=== PATIENT | female | born 1945 | race Caucasian/White ===

== ENCOUNTER 2017-09-19 17:04 | Outpatient (CLI) | payer MEDICARE, BC ==
--- NOTE | 2017-09-19 20:06 | ULT ---
LEFT LOWER EXTREMITY VENOUS DUPLEX EXAM: 09/19/17 HISTORY: Left leg edema. Real time color doppler evaluation of the left lower extremity was performed from groin to calf. This includes evaluation of the common femoral, superficial and profunda femoral, saphenous, popliteal an d trifurcation veins. This shows a patent deep venous system. Normal compressibility and augmentation . There is moderate edema change within the soft tissues of the calf. IMPRESSION: No evidence of DVT. POS: [facility]
== END 2017-09-19 17:05 | disposition home or self-care (01) ==
LOC: ULT 17:04
PROVIDERS: ATTEND Internal Medicine Geriatric Medicine
DX: M79.89 Other specified soft tissue disorders (principal); N18.6 End stage renal disease; R60.0 Localized edema; Z85.42 Personal history of malignant neoplasm of other parts of uterus

== ENCOUNTER 2017-12-05 13:54 | Outpatient (CLI) | payer MEDICARE, BC | END 2017-12-05 13:55 | disposition home or self-care (01) | LOC: BICCT 13:54 | PROVIDERS: ATTEND Internal Medicine Geriatric Medicine | DX: F03.90 Unspecified dementia, unspecified severity, without behavioral disturbance, psychotic disturbance, mood disturbance, and anxiety (principal); G45.9 Transient cerebral ischemic attack, unspecified | CPT/HCPCS: 70450 ==

== ENCOUNTER 2017-12-14 17:05 | Inpatient (IN) | payer MEDICARE, BC ==
[2017-12-14 18:18] LABS: #Lymphocytes 1.9 thou/uL (1.20-3.40); #Monocytes 0.5 thou/uL (0.11-0.59); #Neutrophils 7.3 thou/uL (1.40-6.50); %Basophils 0.4 % (0.0-1.0); %Eosinophils 0.3 % (0.0-10.0); %Monocytes 5.4 % (0.0-10.0); %Neutrophils 74.9 % (42.0-75.0); Hemoglobin 10.5 g/dL (12.0-16.0); Mean Corpuscular HGB CONC 32.3 g/dL (32.0-36.0); Mean Corpuscular Hemoglobin 32.3 pg (27.0-31.0); Mean Platelet Volume 6.5 fL (7.4-10.4); Platelet Count 227 thou/uL (130-400); Red Blood Cell (RBC) Count 3.26 mill/uL (4.20-5.40); White Blood Cell (WBC) Count 9.7 thou/uL (4.8-10.8)
[2017-12-14 18:33] LABS: Bilirubin Negative (Negative); Blood, Urine Large (Negative); Clarity TURBID (Clear); Glucose, Urine (Dipstick) Negative (Negative); Leukocyte Large (Negative); Nitrite Negative (Negative); Protein, Urine (Dipstick) 300 mg/dL (Neg-Trace); Specific Gravity, Urine 1.011 (1.002-1.036); Urobilinogen 0.2 mg/dL (0.2-1.0)
[2017-12-14 18:36] LABS: Bacteria/HPF 4+ HPF (None Seen); Hyaline Casts/LPF 7-10 HYALINE CAST LPF (0-3 Hyaline)
[2017-12-14 18:38] LABS: Pathc Cast-AUWi Flag 3.02 (0-2.49); Yeast-AUWi Flag 189.2 (0-25.0)
[2017-12-14 18:44] LABS: ALT (SGPT) 17 U/L (8-55); AST (SGOT) 20 U/L (5-34); Albumin 3.7 g/dL (3.4-4.8); Alkaline Phosphatase 80 U/L (40-150); Anion Gap 19 mmol/L (10-20); BUN (Urea Nitrogen) 30 mg/dL (9.8-20.1); Bilirubin, Total 0.5 mg/dL (0.2-1.2); Calc. Creatinine Clearance 0 mL/min (70-130); Calcium 9.7 mg/dL (7.8-10.44); Carbon Dioxide 23 mmol/L (23-31); Chloride 101 mmol/L (98-107); Estimated GFR-MDRD 9; Glucose 94 mg/dL (80-115); Potassium 5.3 mmol/L (3.5-5.1); Protein, Total 6.7 g/dL (6.0-8.3); Sodium 138 mmol/L (136-145)
[2017-12-14 18:45] LABS: Troponin I 0.045 ng/mL (< 0.028)
[2017-12-14 18:45] LABS: Manual Microscopic Reviewed? No Path Casts Seen; Yeast-All Forms None Seen HPF (None Seen)
[2017-12-14 19:01] LABS: Lactic Acid 1.2 mmol/L (0.5-2.2)
[2017-12-14] MEDS ORDERED: cefTRIAXone\\ROCEPHIN 2 GM VIAL ONE (20:10)
--- NOTE | 2017-12-14 20:16 | CT ---
NONCONTRAST HEAD CT: 12/14/17 HISTORY: Hypertension. Altered mental status. Intermittent confusion. TECHNIQUE: Noncontrast head CT is performed from skull base to skull vertex. No parenchymal hemorrhage. No extra-axial hematoma. No midline shift. Basilar cisterns are patent. Br ain volume, age appropriate. Cortical carrasquillo-white matter differentiation is preserved. Ventricles and sulci are patent and symmetric. Chronic small vessel ischemic changes of the white mat ter are identified. The calvarium is intact. Adequate aeration of the sinuses and mastoid air cells. IMPRESSION: Chronic small vessel ischemic change white matter. No acute intracranial process. Further evaluation with MRI if clinically warranted. POS: [facility]
--- NOTE | 2017-12-14 20:23 | RAD ---
ONE VIEW CHEST: 12/14/17 HISTORY: Altered mental status. Chills. Uncontrolled hypertension. COMPARISON: 09/19/17 FINDINGS: Portable upright chest: Stable left sided vascular stent. Heart size is normal. Pulmonary vessels are normal. Interstitial op acities are felt to represent chronic change with superimposed infiltrate. No significant pleural flu id. No pneumothorax. IMPRESSION: Infiltrate superimposed upon chronic change. Continued surveillance. POS: [facility]
[2017-12-14 21:46] LABS: Troponin I 0.041 ng/mL (< 0.028)
[2017-12-14 23:25] VITALS: BMI 20.9
[2017-12-14] MEDS ORDERED: Acetaminophen 325 MG TAB PO PRN (23:42)
[2017-12-14] MEDS ORDERED: Ondansetron HCl/PF 4 MG/2 ML Vial IVP PRN (23:42)
[2017-12-14] MEDS ORDERED: Ondansetron ODT 4 MG TAB SL PRN (23:42)
[2017-12-15] MEDS ORDERED: Opium Tincture 10% (1ml Charge) PO PRN (00:03)
[2017-12-15] MEDS ORDERED: Acetaminophen 500 MG TAB PO PRN (00:03)
[2017-12-15] MEDS ORDERED: Ondansetron HCl/PF 4 MG/2 ML Vial IVP PRN (00:03)
[2017-12-15] MEDS ORDERED: hydrALAZINE 20 MG/ML VIAL SLOW IVP PRN (00:03)
[2017-12-15] MEDS ORDERED: Metoclopramide HCl 10 MG/2 ML VIAL IVP PRN (00:22)
[2017-12-15] MEDS: Ondansetron ODT 4 MG TAB PO PRN ×2 (00:24→10:56)
[2017-12-15 00:59] LABS: Troponin I 0.053 ng/mL (< 0.028)
[2017-12-15] MEDS: cloNIDine 0.1 MG TAB PO PRN (04:23)
[2017-12-15] MEDS: HYDROcodone/Acetaminophen 10/325 mg Tablet PO PRN ×2 (04:47→13:11)
[2017-12-15 05:42] LABS: Anion Gap 19 mmol/L (10-20); BUN (Urea Nitrogen) 32 mg/dL (9.8-20.1); Calc. Creatinine Clearance 8 mL/min (70-130); Calcium 9.1 mg/dL (7.8-10.44); Carbon Dioxide 22 mmol/L (23-31); Chloride 104 mmol/L (98-107); Estimated GFR-MDRD 9; Glucose 90 mg/dL (80-115); Potassium 5.5 mmol/L (3.5-5.1); Sodium 139 mmol/L (136-145)
[2017-12-15] MEDS ORDERED: cefTRIAXone\\ROCEPHIN 1 GM, Syringe 0.4 ML in Sterile Water 9.6 ML SLOW IVP SCH (06:00)
[2017-12-15 06:49] LABS: Band 8 % (5-11); Hemoglobin 10.1 g/dL (12.0-16.0); Lymphocytes 10 % (21-51); MDiff Complete? YES; Mean Corpuscular HGB CONC 31.5 g/dL (32.0-36.0); Mean Corpuscular Hemoglobin 31.3 pg (27.0-31.0); Mean Corpuscular Volume 99.5 fl (81.0-99.0); Mean Platelet Volume 6.5 fL (7.4-10.4); Monocytes 2 % (0-10); Neutrophil 80 % (42-75); Platelet Count 236 thou/uL (130-400); RBC Distribution Width 12.2 % (11.5-14.5); Red Blood Cell (RBC) Count 3.23 mill/uL (4.20-5.40); White Blood Cell (WBC) Count 10.3 thou/uL (4.8-10.8)
--- NOTE | 2017-12-15 07:50 | HP ---
DATE OF ADMISSION: 12/15/2017 PRIMARY CARE PHYSICIAN: Mira Gilman MD PRIMARY REVERSE ENGINEER: Shen Elizondo MD CHIEF COMPLAINT: Elevated blood pressure and altered mental status. HISTORY OF PRESENT ILLNESS: This is a 72-year-old female, who presents to [facility] Emergency Department with approximately 2 to 3-day history of intermittent confusio n, altered mentation, lethargy, and elevated blood pressure. The patient states she has had some hea dache and dizziness over the last several days with elevated blood pressure readings at home. The pa win also noticed lower extremity edema over the last 2 weeks, which apparently is new for her. The patient admits to some abdominal discomfort, decreased appetite, but no specific documented fever, c hills, or exposure history. The patient does receive hemodialysis 3 times per week. The patient gilliam s state that she receives hemodialysis Monday, Monday, Monday and has been compliant with this reg imen. The patient denies any recent travel history, exposure, or family members with similar symptom s. The patient's history is complicated and significant for uterine and cervical cancer with bilater al urostomies as well as a colostomy. The patient has noticed increased output in the colostomy with liquidy brown stool. The patient denies any hematemesis, but has had some nausea and felt like vomi ting. The patient admits to significant history of recurrent urinary tract infections due to the uro stomy placements, on intermittent antibiotic therapy. The patient states she has not been on antibio tics in the last several weeks. In the emergency room, the patient underwent general evaluation incl uding CT of the brain showing no acute process. Portable chest x-ray showed questionable infiltrate on superimposed chronic changes. Metabolic screening showed evidence of a suspected urinary tract in fection, at which point, the patient received IV Rocephin and 1 liter of normal saline. The patient was referred to the telemetry unit for further evaluation. PAST MEDICAL HISTORY: 1. End-stage renal disease with hemodialysis on Monday, Monday, and Monday. 2. History of cervical and uterine cancer, status post pelvic reconstruction. 3. Hypertension. 4. History of right hand cellulitis, status post dog bite. 5. Depression. 6. Deconditioning. 7. Raynaud phenomenon. 8. Degenerative joint disease. 9. Peripheral vascular disease. 10. History of gout. PAST SURGICAL HISTORY: 1. Status post colostomy. 2. Status post ileostomy. 3. Status post pelvic exenteration. 4. Status post PICC line placement in the right upper extremity with subsequent removal. 5. Status post left arm AV fistula. 6. Status post temporary hemodialysis catheter placement. CURRENT MEDICATIONS: Based on previous electronic medical record shows, 1. [place] 10/325 mg, 1 tab p.o. q.4-6 hours p.r.n. pain. 2. Multivitamin 1 tab p.o. daily. 3. Tincture of opium 2 mL p.o. at bedtime p.r.n. 4. Prednisone 20 mg p.o. daily. 5. Renvela 800 mg p.o. t.i.d. 6. Effexor 75 mg 1 tab p.o. daily. 7. Vitamin B complex 150 mg p.o. daily. ALLERGIES: ERYTHROMYCIN, FENTANYL, MORPHINE, NALOXONE, PROMETHAZINE. FAMILY HISTORY: No inheritable diseases per patient report. SOCIAL HISTORY: Lives in the [place], [place] area. Assisted by her nephew with activities of daily ziyad ing. No current alcohol, tobacco, or illicit drug use. Ambulatory with the use of a rolling walker. REVIEW OF SYSTEMS: The following complete review of systems was negative, unless otherwise mentioned in the HPI or below: Constitutional: Weight loss or gain, ability to conduct usual activities. Skin: Rash, itching. Eyes: Double vision, pain. ENT/Mouth: Nose bleeding, neck stiffness, pain, tenderness. Cardiovascular: Palpitations, dyspnea on exertion, orthopnea. Respiratory: Shortness of breath, wheezing, cough, hemoptysis, fever or night sweats. Gastrointestinal: Poor appetite, abdominal pain, heartburn, nausea, vomiting, constipation, or diarr hea. Genitourinary: Urgency, frequency, dysuria, nocturia. Musculoskeletal: Pain, swelling. Neurologic/Psychiatric: Anxiety, depression. Allergy/Immunologic: Skin rash, bleeding tendency. Otherwise negative except as stated per HPI. PHYSICAL EXAMINATION: VITAL SIGNS: On admission, blood pressure 172/81, pulse 88, respiratory rate 18, temperature 97.8 de grees Fahrenheit, O2 saturation 95% on room air. GENERAL APPEARANCE: This is a 72-year-old female, ill-appearing, alert, responds to questi ons, in mild distress. HEENT: Pupils are equal, round, and reactive to light and accommodation. Extraocular muscles are in tact. No scleral icterus. No conjunctival injection. Nares, patent. OP is clear. Oral mucosa, dr y appearing. NECK: Supple. No cervical adenopathy, no thyromegaly, no carotid bruits, no JVD appreciated. Cervi shirley spine with full active and passive range of motion. No meningeal signs appreciated. CHEST: Diminished breath sounds in the bases bilaterally. CARDIOVASCULAR: S1, S2 without noted murmur, rub, or gallop. ABDOMEN: Round and soft with mild tenderness to palpation diffusely. Bilateral urostomy bags in martha ce. Positive colostomy in place. No palpable mass. No rebound. EXTREMITIES: Warm and dry with fair turgor. Pitting edema to the knees bilaterally. Pulses are pal pable distally at the dorsalis pedis, posterior tibial, and popliteal arteries bilaterally. Capillar y refill, less than 2 seconds. NEUROLOGIC: Cranial nerves II-XII are grossly intact. No focal or lateralizing signs appreciated. The patient is not observed ambulatory during this exam. PERTINENT LABORATORY AND X-RAY FINDINGS: Sodium 138, potassium 5.3, chloride 101, CO2 of 23, BUN 30, creatinine 4.73, estimated GFR of 9, glucose 94, lactic acid level 1.2, calcium 9.7. LFT is within normal limits. Troponin I ranged between 0.041 to 0.045. CBC showed a white blood cell count of 9.7 , hemoglobin 11, hematocrit 33, MCV 100, platelet count 227 with normal differential. Urinalysis [place] wed large leukocyte esterase, 11-20 rbc's per high-powered field, and 50 to too numerous to count wbc 's per high-powered field, 4+ bacteria. CT of the brain without contrast dated 12/14/2017 showed no acute intracranial process. Portable chest x-ray dated 12/14/2017 showed infiltrates superimposed on chronic changes. EKG dated 12/14/2017 by my interpretation shows sinus mechanism with heart rates i n the 70s. Attenuated R-waves in the precordial leads. Normal axis. Voltage criteria consistent wi th left ventricular hypertrophy. ASSESSMENT AND PLAN: 1. Urinary tract infection. Suspected recurrent. We will continue Rocephin 2 grams IV q.24 hours. Urine culture pending. The patient with recurrent urinary tract infections in the context of bilate ral urostomy tubes. 2. Acute metabolic encephalopathy. Secondarily to #1. See #1 above for management. Continue suppo rtive measures. 3. End-stage renal disease with hemodialysis. We will consult Nephrology Service for ongoing timing of maintenance hemodialysis. No urgent need for hemodialysis and likely will resume maintenance ses sions on 12/15/2017. 4. Elevated troponin I. Suspect secondarily to end-stage renal disease. No evidence to suggest acu te coronary syndrome. 5. Chronic macrocytic anemia secondary to chronic kidney disease. Continue serial hemoglobin assess ment. No evidence to suggest acute blood loss. Repeat CBC in the a.m. 6. Deconditioning. PT evaluation in the a.m. for functional assessment and fall risk determination. The patient may be deemed an appropriate candidate for ongoing home health with home PT. 7. Prophylaxis. Sequential compression devices while in bed. Pepcid 20 mg p.o. b.i.d. 8. Code status is FULL. Surrogate medical decision maker is patient's nephew.
[2017-12-15] MEDS: Sevelamer Carbonate 800 MG TAB PO SCH ×3 (12:47→17:51)
[2017-12-15] MEDS: Famotidine 20 MG TAB PO SCH (13:12)
--- NOTE | 2017-12-15 14:05 | PDOC.EVN ---
Event Note - Event Note Event Note: pt seen and examined in dialysis. Still appears drowsy but able to answer questions.denies any SOB,CP etc chart reviewed. cont IV ABx untill final Cx reported . may need ID consult given complicated history with urostomy tubes b/l Care discussed with family.Pt needs changing of Nephrostomy tubes .last done 4 weeks ago. follow wit . will consult him per family request cont supportive care. will follow. am labs HD per nephrology
--- NOTE | 2017-12-15 19:23 | CON ---
DATE OF CONSULTATION: 12/15/2017 DATE OF HOSPITAL ADMISSION: 12/14/2017 REASON FOR CONSULTATION: 1. History of bladder cancer, status post cystectomy with ileal conduit. 2. 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 3. Bilateral indwelling nephroureteral stents with repeated occlusion approximately on a 2-month ibrahima edule. HISTORY OF PRESENT ILLNESS: Ms. 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 The patient was brought in through the emergency depar tment on 12/14/2017. She is hemodialysis dependent for renal function, but does have a degree of sissy er clearance through her bilateral kidneys. Unfortunately, she has strictures of her ureters and an ileal conduit after treatment of her bladder cancer by cystectomy with ileal conduit. As a result, t he patient has chronic re-obstruction of her bilateral nephroureteral stents. The patient also has a colostomy secondary to radiation injury. Ms. Whitaker is not in her usual state and is barely abl e to carry on a conversation at this point. REVIEW OF SYSTEMS: Constitutional: The patient has had some altered mental status. Head, Ears, Nose , and Throat: No obvious problems. Eyes: Negative. Respiratory: Clear to auscultation bilaterall y. She does have a history of secondhand smoke exposure from her mother, but does not manifest any s ignificant smoking-related disease at the present time. Cardiovascular: Negative. Gastrointestinal : The patient has a colostomy and has had radiation associated injury to her colon. Endocrine: Neg ative. Genitourinary: The patient has bilateral percutaneous nephrostomy tubes and a right lower qu adrant ileal conduit, as well as a history of bladder cancer. She has a history of cervical cancer a nd has undergone treatment for that in the past, which included radiation. Musculoskeletal: Negativ e. Allergies: Negative. Neurologic: Negative. Hematologic: Negative. Psychiatric and Behaviora l: Negative. PAST MEDICAL HISTORY: 1. Endometrial carcinoma C54.1. 2. End-stage renal disease on dialysis, N18.8, Z99.2. 3. History of nephrostomies, Z87.448. 4. Arthritis. 5. Cervical cancer. 6. Chronic fatigue. 7. Chronic kidney disease. 8. Lumbago with sciatica. 9. Osteoporosis. 10. B12 deficiency. 11. Vitamin D deficiency. PAST SURGICAL HISTORY: 1. Hysterectomy. 2. Colostomy. 3. Bilateral nephrostomy tubes for urethral stricture disease. 4. History of bladder cancer, status post cystectomy with ileal conduit. SOCIAL HISTORY: The patient is a lifelong nonsmoker, though had secondhand smoke exposure from her m other. She is not engaged in sexual activity at present and does not use illicit drugs. She does dr ink occasional alcohol. FAMILY MEDICAL HISTORY: Not available. PHYSICAL EXAMINATION: VITAL SIGNS: Temperature is 97.8, pulse 78, respirations 12, O2 saturation is 96% on 1 liter by nasa l cannula, blood pressure is 162/74. GENERAL: This is a cachectic white female. She does respond to questions appropriately, but appears extremely tired. HEENT: Head is normocephalic and atraumatic. No bruises noted. NECK: Supple. CHEST: Lungs, clear to auscultation bilaterally. CARDIAC: The patient has a regular rate and rhythm of approximately 73-78. On monitor, she has a no rmal sinus rhythm today. ABDOMEN: Soft and nontender. There is stool present in the patient's colostomy. The patient has an ileal conduit on the right. There is bilateral back nephroureteral stents in place. PELVIC: Deferred at this time. EXTREMITIES: The patient has a left arm fistula, which has been accessed today for hemodialysis. NEUROLOGIC: The patient does recognize me, but appears extremely tired. She has grossly normal refl exes. EXTREMITIES: There is right greater than left lower extremity edema. LABORATORY STUDIES: The patient has a white count of 10,300. The hemoglobin is 10 with a hematocrit of 32.1. She has a moderate left shift with 80% neutrophils on the manual count. There is an ANC o f 7.3, which is elevated. Serum chemistries this morning prior to dialysis showed a potassium of 5.5 , blood urea nitrogen of 32, and creatinine of 4.92. Microbiology evaluation: There are gram-negative rods isolated from her urine from her nephrostomy t ube. This would not be an unexpected finding in that they drain into an ileal conduit. ASSESSMENT AND PLAN: This patient appears to have some type of problem causing altered mental status . It is possible that this relates to her nephrostomy tubes becoming re-occluded. She is not certai n when her nephroureteral stents were last changed. 1. Frequent reocclusion of bilateral nephroureteral stents secondary to biofilm development due to i howell conduit contact. The patient probably should stick to a 2-month schedule for replacement of her nephroureteral stents as she has not been able to tolerate them being left in place for longer than that without exchange by her report. 2. Generalized illness, uncertain whether this patient is sick due to a generalized sepsis, but she does have an elevated ANC and a left shift present. The patient is not febrile, but is a relatively thin, frail, elderly female. Nephroureteral stent exchange. I have placed a call to Interventional Radiology to arrange for nephr oureteral stent exchange.
[2017-12-15] MEDS: cefTRIAXone\\ROCEPHIN 2 GM in Sodium Chloride 0.9% 100 ML IVPB SCH (22:00)
[2017-12-16] MEDS: HYDROcodone/Acetaminophen 10/325 mg Tablet PO PRN ×2 (03:55→20:37)
[2017-12-16] MEDS: Famotidine 20 MG TAB PO SCH (10:00)
[2017-12-16] MEDS: Furosemide 80 MG TAB PO SCH (10:00)
[2017-12-16] MEDS: Sevelamer Carbonate 800 MG TAB PO SCH ×3 (10:00→18:50)
--- NOTE | 2017-12-16 11:05 | PDOC.PN ---
- Subjective Encounter Start Date: 12/16/17 Encounter Start Time: 07:50 -: old records requested/rev Patient seen and examined. No new complaints. No overnight events - Objective Resuscitation Status: Resuscitation Status FULL:Full Resuscitation MAR Reviewed: Yes Vital Signs & Weight: Vital Signs (12 hours) Temp Pulse Resp BP Pulse Ox 12/16/17 07:25 98.2 F 82 16 100 12/16/17 07:20 98.2 F 82 16 157/75 H 100 12/16/17 04:00 98.0 F 85 18 99 12/16/17 00:12 97.5 F L 76 16 147/68 H 99 Weight Weight 107 lb 8 oz I&O: 12/15/17 12/16/17 12/17/17 06:59 06:59 06:59 Intake Total 490 Output Total 4035 Balance -3545 Result Diagrams: 12/15/17 04:06 12/15/17 04:06 EKG Reviewed by me: Yes (nsr) Phys Exam - Physical Examination Constitutional: NAD HEENT: PERRLA, moist MMs, sclera anicteric Neck: no JVD, supple Respiratory: no wheezing, no rales, no rhonchi Cardiovascular: RRR, no significant murmur, no rub Gastrointestinal: soft, no distention, positive bowel sounds colostomy, ileal conduit Musculoskeletal: no edema, pulses present Neurological: non-focal, normal sensation Lymphatic: no nodes Psychiatric: normal affect, A&O x 3 Skin: no rash, normal turgor Dx/Plan (1) Elevated troponin Code(s): R74.8 - ABNORMAL LEVELS OF OTHER SERUM ENZYMES Status: Acute (2) Encephalopathy acute Code(s): G93.40 - ENCEPHALOPATHY, UNSPECIFIED Status: Acute (3) H/O carcinoma of bladder Code(s): Z85.51 - PERSONAL HISTORY OF MALIGNANT NEOPLASM OF BLADDER Status: Acute (4) Obstruction of urostomy catheter Code(s): T83.098A - [facility] COMPL OF OTHER URINARY CATHETER, INITIAL ENCOUNTER Status: Acute (5) ESRD on dialysis Code(s): N18.6 - END STAGE RENAL DISEASE; Z99.2 - DEPENDENCE ON RENAL DIALYSIS Status: Chronic (6) H/O malignant neoplasm of uterine body Code(s): Z85.42 - PERSONAL HISTORY OF MALIGNANT NEOPLASM OF OTH PRT UTERUS Status: Chronic (7) Macrocytic anemia Code(s): D53.9 - NUTRITIONAL ANEMIA, UNSPECIFIED Status: Chronic (8) Physical deconditioning Code(s): R53.81 - OTHER MALAISE Status: Chronic (9) Secondary hyperparathyroidism of renal origin Code(s): N25.81 - SECONDARY HYPERPARATHYROIDISM OF RENAL ORIGIN Status: Chronic - Plan cont current plan of care, plan discussed w/ family, continue antibiotics * medication reviewed as below * symptomatic treatment * I spoke with urology about the plan * Pt needs nephroureteral stent exchange but pt prefers to be done here but it is not possible * so will try to transfer to [place] * continue rocephin. Review of Systems - Review of Systems Eyes: negative: Pain, Vision Change, Conjunctivae Inflammation, Eyelid Inflammation, Redness, Other ENT: negative: Ear Pain, Ear Discharge, Nose Pain, Nose Discharge, Nose Congestion, Mouth Pain, Mouth Swelling, Throat Pain, Throat Swelling, Other Respiratory: negative: Cough, Dry, Shortness of Breath, Hemoptysis, SOB with Excertion, Pleuritic Pain, Sputum, Wheezing Cardiovascular: negative: chest pain, palpitations, orthopnea, paroxysmal nocturnal dyspnea, edema, light headedness, other Gastrointestinal: negative: Nausea, Vomiting, Abdominal Pain, Diarrhea, Constipation, Melena, Hematochezia, Other Genitourinary: negative: Dysuria, Frequency, Incontinence, Hematuria, Retention , Other Musculoskeletal: negative: Neck Pain, Shoulder Pain, Arm Pain, Back Pain, Hand Pain, Leg Pain, Foot Pain, Other Skin: negative: Rash, Lesions, Benjamin, Bruising, Other - Medications/Allergies Allergies/Adverse Reactions: Allergies Allergy/AdvReac Type Severity Reaction Status Date / Time erythromycin base Allergy Verified 12/15/17 00:02 fentanyl Allergy Verified 12/15/17 00:02 morphine Allergy Verified 12/15/17 00:02 naloxone [From Narcan] Allergy Verified 12/15/17 00:02 promethazine [From Phenergan] Allergy Verified 12/15/17 00:02 Medications: Current Medications Acetaminophen (Tylenol) 1,000 mg PO Q6H PRN PRN Reason: Headache/Fever or Mild Pain Hydrocodone Bitart/Acetaminophen ([place] 10/325) 1 tab PO Q6H PRN PRN Reason: Pain 4-6 Hydrocodone Bitart/Acetaminophen ([place] 10/325) 2 tab PO Q6H PRN PRN Reason: Pain 7-10 Last Admin: 12/16/17 03:55 Dose: 2 tab Clonidine (Catapres) 0.1 mg PO Q4H PRN PRN Reason: Systolic BP > 180 Last Admin: 12/15/17 04:23 Dose: 0.1 mg Famotidine (Pepcid) 20 mg PO DAILY [facility] Last Admin: 12/16/17 10:00 Dose: 20 mg Furosemide (Lasix) 80 mg PO DAILY [facility] Last Admin: 12/16/17 10:00 Dose: 80 mg Hydralazine HCl (Apresoline) 10 mg SLOW IVP Q4H PRN PRN Reason: Systolic BP > 180 Ceftriaxone Sodium 2 gm/ (Sodium Chloride) 100 mls @ 200 mls/hr IVPB 1999 [facility] Last Admin: 12/15/17 22:00 Dose: 100 mls Metoclopramide HCl (Reglan) 10 mg IVP Q6H PRN PRN Reason: Nausea/Vomiting Ondansetron HCl (Zofran Odt) 4 mg PO Q6H PRN PRN Reason: Nausea/Vomiting Last Admin: 12/15/17 10:56 Dose: 4 mg Ondansetron HCl (Zofran) 4 mg IVP Q6H PRN PRN Reason: Nausea/Vomiting Opium Tincture (Opium Tincture 10%) 2 ml PO HSPRN PRN PRN Reason: slow down stools Sevelamer Carbonate (Renvela) 800 mg PO TID-[facility] Last Admin: 12/16/17 10:00 Dose: 800 mg Sodium Chloride (Flush - Normal Saline) 10 ml IVF Q12HR [facility] Last Admin: 12/16/17 10:02 Dose: 10 ml Sodium Chloride (Flush - Normal Saline) 10 ml IVF PRN PRN PRN Reason: Saline Flush Venlafaxine HCl (Effexor) 75 mg PO DAILY [facility] Last Admin: 12/16/17 10:00 Dose: 75 mg
[2017-12-16] MEDS ORDERED: Eucerin (Mineral Oil/Petrolatum,White) 30 gm Jar TOP PRN (11:06)
[2017-12-16] MEDS ORDERED: Artificial Tears 18 DROP/0.9 ML EA EYE PRN (11:06)
[2017-12-16] MEDS ORDERED: Milk Of Magnesia 30 ML UDCUP PO PRN (11:06)
[2017-12-16] MEDS ORDERED: Senokot 8.6 MG TAB PO PRN (11:06)
[2017-12-16] MEDS ORDERED: Chloraseptic Spray 180 ml Bottle PO PRN (11:06)
[2017-12-16] MEDS ORDERED: Loratadine 10 MG TAB PO PRN (11:06)
[2017-12-16] MEDS ORDERED: Acetaminophen 325 MG TAB PO PRN (11:06)
[2017-12-16] MEDS ORDERED: Temazepam 15 MG CAP PO PRN (11:06)
[2017-12-16] MEDS ORDERED: Diabetic Tussin 200 MG/10 ML UDCUP PO PRN (11:06)
[2017-12-16] MEDS ORDERED: Sodium Chloride 0.65% Nasal 44 ML BOT EA NARE PRN (11:06)
[2017-12-16] MEDS ORDERED: Loperamide HCl 2 MG CAP PO PRN (11:06)
--- NOTE | 2017-12-16 12:28 | DIS ---
PRIMARY CARE PHYSICIAN: Mira Gilman M.D. DATE OF ADMISSION: 12/14/2017 DATE OF DISCHARGE: 12/16/2017 DISCHARGE DISPOSITION: Other hospital for higher level of care. PRIMARY DISCHARGE DIAGNOSES: 1. 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 2. Complicated urinary tract infection. SECONDARY DISCHARGE DIAGNOSES: End stage renal disease on hemodialysis, secondary hyperparathyroidis m of renal origin, chronic physical deconditioning, macrocytic anemia, history of malignant neoplasm of uterine and cervix, history of bladder carcinoma required cystectomy and ilial conduit, end-stage renal disease on hemodialysis, colostomy in place, protein-calorie malnutrition, mild. PRIMARY PROCEDURE/OPERATION: None. RADIOLOGICAL INVESTIGATION: CT brain on admission showed no acute intracranial process, chronic isch emic white matter changes. Chest x-ray showed no acute cardiopulmonary process. SIGNIFICANT LABORATORY DATA: WBC 10.3, hemoglobin 10.1, platelet 236 with a band. Sodium 139, potas sium 5.5, BUN 32, creatinine 4.92, calcium 9.1, troponin 0.053. Liver enzymes normal. Lactic acid 1 .2. Urinalysis suggestive of UTI. Urine culture grew Citrobacter and gram negative camilo. Blood cult ure negative. DISCHARGE MEDICATIONS: While in hospital, the patient is receiving Rocephin 1 gram IV daily. The delfino walden is on following medication at home, Lasix 80 mg p.o. daily, [place] 10 one tablet q.6 hourly p.r. n., tincture of opium 1 mL q.6 h. p.r.n., ropinirole 0.25 mg p.o. at bedtime, Renvela 2400 mg p.o. t. i.d., Effexor 225 mg p.o. daily, vitamin B12 IM as directed. Based on culture and sensitivity result , the patient should be able to take orally Augmentin or Omnicef for her recurrent urinary tract infe ction. CONTRAINDICATIONS: None. CODE STATUS: FULL CODE. INPATIENT CONSULTANTS: Dr. Fernandez, urologist, was consulted while in hospital. TEST RESULTS PENDING ON DISCHARGE: None. ALLERGIES: ERYTHROMYCIN, FENTANYL, MORPHINE, NALOXONE, PROMETHAZINE. DISCHARGE PLAN: Post hospital, the patient is planned to discharge to a higher level of care at [facility]. HOSPITAL COURSE: A 72-year-old female who has bladder cancer and she had cystectomy and subsequently ileal conduit done. She also has a history of uterine and cervical malignancy, required radiation t herapy and because of that, the patient has ureteral stricture. The patient does have nephroureteral stent placed and that is occluded and that was making her seek. She presented at this time to [facility] with altered mental status. CT brain was negative for any acute intracranial process. We suspec americo urinary tract infection. The patient does have an ileal conduit as well as colostomy and nephrou reteral stent placement and that is why considering complicated UTI. The patient was admitted in [facility] The patient was treated with antibiotic therapy on discharge. Based on culture and sensitivi ty result, the patient was receiving Rocephin while in hospital. Augmentin and Omnicef can be consid ered orally upon discharge. This patient wants to do nephroureteral stent exchange here in our hospital, but unfortunately our [facility] does not have any supply necessary for that as well as our etiologies cannot do at this point during this admission. The patient used to do this procedure at [facility], but Dr. Fernandez pr efer her to go to [facility], so medical record can be accessible and future stent exchan ge can be done here locally which patient prefers ideally. Overall, this patient is otherwise medically stable for discharge. We are working with transfer cent er for transferring to either [facility] preferably, if not, then [facility]. Hawkins bsequently, the patient will follow up with Urology as an outpatient basis. The patient is seen and examined at bedside today. Plan of care discussed with the family member and patient. Please see my progress note from today for further detail.
[2017-12-16] MEDS: cefTRIAXone\\ROCEPHIN 2 GM in Sodium Chloride 0.9% 100 ML IVPB SCH (20:36)
[2017-12-17] MEDS: HYDROcodone/Acetaminophen 10/325 mg Tablet PO PRN ×2 (02:25→13:04)
--- NOTE | 2017-12-17 05:46 | PDOC.PN ---
- Subjective Encounter Start Date: 12/17/17 Encounter Start Time: 09:00 Patient seen and examined. No new complaints. No overnight events pt c/o chest pain - Objective Resuscitation Status: Resuscitation Status FULL:Full Resuscitation MAR Reviewed: Yes Vital Signs & Weight: Vital Signs (12 hours) Temp Pulse Resp BP BP Pulse Ox 12/17/17 04:00 98.2 F 74 18 92 L 12/17/17 00:45 168/82 H 94 L 12/17/17 00:00 97.8 F 77 18 180/79 H 91 L 12/16/17 20:00 98.5 F 83 16 94 L 12/16/17 19:51 98.5 F 83 16 169/83 H 92 L Weight Weight 107 lb 8 oz I&O: 12/15/17 12/16/17 12/17/17 06:59 06:59 06:59 Intake Total 490 760 Output Total 4035 325 Balance -3545 435 Result Diagrams: 12/17/17 06:56 12/17/17 06:56 EKG Reviewed by me: Yes ([id number]) Phys Exam - Physical Examination Constitutional: NAD HEENT: PERRLA, moist MMs, sclera anicteric Neck: no JVD, supple Respiratory: no wheezing, no rales, no rhonchi Cardiovascular: RRR, no significant murmur, no rub Gastrointestinal: soft, no distention, positive bowel sounds colostomy+, nephrostomy +, ileal conduit Musculoskeletal: no edema, pulses present Neurological: non-focal Lymphatic: no nodes Psychiatric: normal affect Skin: no rash, normal turgor Dx/Plan (1) Encephalopathy acute Code(s): G93.40 - ENCEPHALOPATHY, UNSPECIFIED Status: Acute (2) Obstruction of urostomy catheter Code(s): T83.098A - [facility] COMPL OF OTHER URINARY CATHETER, INITIAL ENCOUNTER Status: Acute (3) Elevated troponin Code(s): R74.8 - ABNORMAL LEVELS OF OTHER SERUM ENZYMES Status: Acute (4) H/O carcinoma of bladder Code(s): Z85.51 - PERSONAL HISTORY OF MALIGNANT NEOPLASM OF BLADDER Status: Acute (5) ESRD on dialysis Code(s): N18.6 - END STAGE RENAL DISEASE; Z99.2 - DEPENDENCE ON RENAL DIALYSIS Status: Chronic (6) H/O malignant neoplasm of uterine body Code(s): Z85.42 - PERSONAL HISTORY OF MALIGNANT NEOPLASM OF OTH PRT UTERUS Status: Chronic (7) Macrocytic anemia Code(s): D53.9 - NUTRITIONAL ANEMIA, UNSPECIFIED Status: Chronic (8) Physical deconditioning Code(s): R53.81 - OTHER MALAISE Status: Chronic (9) Secondary hyperparathyroidism of renal origin Code(s): N25.81 - SECONDARY HYPERPARATHYROIDISM OF RENAL ORIGIN Status: Chronic - Plan cont current plan of care, continue antibiotics * s/p procedure and stent exchange * continue rocephin * serial cardiac enzyme * ekg is nsr * medication reviewed as below * symptomatic treatment * expecting discharge soon when urology ok. Review of Systems - Review of Systems Constitutional: negative: fever, chills, sweats, weakness, malaise, other Eyes: negative: Pain, Vision Change, Conjunctivae Inflammation, Eyelid Inflammation, Redness, Other ENT: negative: Ear Pain, Ear Discharge, Nose Pain, Nose Discharge, Nose Congestion, Mouth Pain, Mouth Swelling, Throat Pain, Throat Swelling, Other Respiratory: negative: Cough, Dry, Shortness of Breath, Hemoptysis, SOB with Excertion, Pleuritic Pain, Sputum, Wheezing Cardiovascular: chest pain. negative: palpitations, orthopnea, paroxysmal nocturnal dyspnea, edema, light headedness, other Gastrointestinal: negative: Nausea, Vomiting, Abdominal Pain, Diarrhea, Constipation, Melena, Hematochezia, Other Genitourinary: negative: Dysuria, Frequency, Incontinence, Hematuria, Retention , Other Musculoskeletal: Back Pain. negative: Neck Pain, Shoulder Pain, Arm Pain, Hand Pain, Leg Pain, Foot Pain, Other Skin: negative: Rash, Lesions, Benjamin, Bruising, Other - Medications/Allergies Allergies/Adverse Reactions: Allergies Allergy/AdvReac Type Severity Reaction Status Date / Time erythromycin base Allergy Verified 12/15/17 00:02 fentanyl Allergy Verified 12/15/17 00:02 morphine Allergy Verified 12/15/17 00:02 naloxone [From Narcan] Allergy Verified 12/15/17 00:02 promethazine [From Phenergan] Allergy Verified 12/15/17 00:02 Medications: Current Medications Acetaminophen (Tylenol) 650 mg PO Q4H PRN PRN Reason: Headache/Fever or Mild Pain Hydrocodone Bitart/Acetaminophen ([place] 10/325) 1 tab PO Q6H PRN PRN Reason: Pain 4-6 Last Admin: 12/17/17 02:25 Dose: 1 tab Hydrocodone Bitart/Acetaminophen ([place] 10/325) 2 tab PO Q6H PRN PRN Reason: Pain 7-10 Last Admin: 12/16/17 03:55 Dose: 2 tab Al Hydroxide/Mg Hydroxide (Maalox) 15 ml PO Q4H PRN PRN Reason: Heartburn or Indigestion Artificial Tears (Tears Naturale) 0 drop EA EYE PRN PRN PRN Reason: Dry Eyes Clonidine (Catapres) 0.1 mg PO Q4H PRN PRN Reason: Systolic BP > 180 Last Admin: 12/15/17 04:23 Dose: 0.1 mg Famotidine (Pepcid) 20 mg PO DAILY [facility] Last Admin: 12/16/17 10:00 Dose: 20 mg Furosemide (Lasix) 80 mg PO DAILY [facility] Last Admin: 12/16/17 10:00 Dose: 80 mg Guaifenesin (Robitussin Sf) 200 mg PO Q4H PRN PRN Reason: Cough Hydralazine HCl (Apresoline) 10 mg SLOW IVP Q4H PRN PRN Reason: Systolic BP > 180 Ceftriaxone Sodium 2 gm/ (Sodium Chloride) 100 mls @ 200 mls/hr IVPB 1999 [facility] Last Admin: 12/16/17 20:36 Dose: 100 mls Loperamide HCl (Imodium) 2 mg PO PRN PRN PRN Reason: Diarrhea/Loose Stools Loratadine (Claritin) 10 mg PO DAILYPRN PRN PRN Reason: Sinus Symptoms Magnesium Hydroxide (Milk Of Magnesium) 30 ml PO DAILYPRN PRN PRN Reason: Constipation Metoclopramide HCl (Reglan) 10 mg IVP Q6H PRN PRN Reason: Nausea/Vomiting Mineral Oil/White Petrolatum (Eucerin Cream) 0 gm TOP BIDPRN PRN PRN Reason: Dry Skin Ondansetron HCl (Zofran Odt) 4 mg PO Q6H PRN PRN Reason: Nausea/Vomiting Last Admin: 12/15/17 10:56 Dose: 4 mg Ondansetron HCl (Zofran) 4 mg IVP Q6H PRN PRN Reason: Nausea/Vomiting Opium Tincture (Opium Tincture 10%) 2 ml PO HSPRN PRN PRN Reason: slow down stools Phenol (Chloraseptic [place] 180 Ml Bot) 0 ml PO PRN PRN PRN Reason: Sore Throat Ropinirole HCl (Requip) 0.25 mg PO HS [facility] Senna (Senokot) 2 tab PO HSPRN PRN PRN Reason: Constipation Sevelamer Carbonate (Renvela) 800 mg PO TID-WM [facility] Last Admin: 12/16/17 18:50 Dose: Not Given Sodium Chloride (Flush - Normal Saline) 10 ml IVF Q12HR [facility] Last Admin: 12/16/17 20:37 Dose: 10 ml Sodium Chloride (Flush - Normal Saline) 10 ml IVF PRN PRN PRN Reason: Saline Flush Sodium Chloride ([place] Nasal [place] 0.65%) 0 ml EA NARE QIDPRN PRN PRN Reason: Nasal Congestion Temazepam (Restoril) 15 mg PO HSPRN PRN PRN Reason: Insomnia Venlafaxine HCl (Effexor) 75 mg PO DAILY [facility] Last Admin: 12/16/17 10:00 Dose: 75 mg
[2017-12-17 07:16] LABS: #Lymphocytes 1.2 thou/uL (1.20-3.40); #Monocytes 0.5 thou/uL (0.11-0.59); %Basophils 0.3 % (0.0-1.0); %Eosinophils 0.3 % (0.0-10.0); %Lymphocytes 10.5 % (21.0-51.0); %Monocytes 4.3 % (0.0-10.0); %Neutrophils 84.6 % (42.0-75.0); Hemoglobin 11.2 g/dL (12.0-16.0); Mean Corpuscular HGB CONC 31.9 g/dL (32.0-36.0); Mean Platelet Volume 7.2 fL (7.4-10.4); Platelet Count 234 thou/uL (130-400); RBC Distribution Width 12.2 % (11.5-14.5); Red Blood Cell (RBC) Count 3.51 mill/uL (4.20-5.40); White Blood Cell (WBC) Count 11.8 thou/uL (4.8-10.8)
[2017-12-17 07:20] LABS: Albumin 3.4 g/dL (3.4-4.8); Anion Gap 21 mmol/L (10-20); BUN (Urea Nitrogen) 36 mg/dL (9.8-20.1); BUN/Creatinine Ratio 7.42; Calc. Creatinine Clearance 8 mL/min (70-130); Calcium 9.2 mg/dL (7.8-10.44); Carbon Dioxide 19 mmol/L (23-31); Chloride 100 mmol/L (98-107); Estimated GFR-MDRD 9; Glucose 97 mg/dL (80-115); Sodium 135 mmol/L (136-145)
[2017-12-17] MEDS: Sevelamer Carbonate 800 MG TAB PO SCH ×3 (09:47→18:28)
[2017-12-17] MEDS: Furosemide 80 MG TAB PO SCH (09:48)
[2017-12-17] MEDS: Famotidine 20 MG TAB PO SCH (09:48)
[2017-12-17] MEDS ORDERED: Nitroglycerin 0.4 MG TAB (25 Tab Bottle) ONE (12:57)
[2017-12-17] MEDS: cloNIDine 0.1 MG TAB PO PRN (13:04)
[2017-12-17] MEDS ORDERED: Mag-Al 1200 mg/1200 mg/30 ML UDCUP PO SCH (13:30)
[2017-12-17 14:05] LABS: CKMB 3.4 ng/mL (0-6.6)
[2017-12-17 19:51] LABS: CKMB 3.1 ng/mL (0-6.6); Troponin I 0.044 ng/mL (< 0.028)
[2017-12-17] MEDS: rOPINIRole HCl 0.25 MG TAB PO SCH (20:51)
[2017-12-17] MEDS: cefTRIAXone\\ROCEPHIN 2 GM in Sodium Chloride 0.9% 100 ML IVPB SCH (20:51)
[2017-12-18 02:11] LABS: CKMB 3.1 ng/mL (0-6.6); Troponin I 0.039 ng/mL (< 0.028)
[2017-12-18] MEDS: HYDROcodone/Acetaminophen 10/325 mg Tablet PO PRN ×3 (04:06→20:34)
[2017-12-18 08:44] LABS: #Lymphocytes 0.8 thou/uL (1.20-3.40); #Monocytes 0.4 thou/uL (0.11-0.59); #Neutrophils 9.7 thou/uL (1.40-6.50); %Basophils 0.1 % (0.0-1.0); %Eosinophils 0.2 % (0.0-10.0); %Lymphocytes 7.4 % (21.0-51.0); %Neutrophils 88.3 % (42.0-75.0); Hemoglobin 10.2 g/dL (12.0-16.0); Mean Corpuscular Hemoglobin 31.9 pg (27.0-31.0); Mean Corpuscular Volume 99.8 fl (81.0-99.0); Mean Platelet Volume 7.2 fL (7.4-10.4); Platelet Count 172 thou/uL (130-400); RBC Distribution Width 11.9 % (11.5-14.5); Red Blood Cell (RBC) Count 3.19 mill/uL (4.20-5.40); White Blood Cell (WBC) Count 10.9 thou/uL (4.8-10.8)
[2017-12-18] MEDS: Sevelamer Carbonate 800 MG TAB PO SCH ×3 (08:49→16:38)
[2017-12-18 09:07] LABS: Anion Gap 14 mmol/L (10-20); BUN (Urea Nitrogen) 38 mg/dL (9.8-20.1); Calc. Creatinine Clearance 8 mL/min (70-130); Calcium 8.8 mg/dL (7.8-10.44); Carbon Dioxide 26 mmol/L (23-31); Chloride 101 mmol/L (98-107); Estimated GFR-MDRD 8; Glucose 94 mg/dL (80-115); Potassium 4.3 mmol/L (3.5-5.1); Sodium 137 mmol/L (136-145)
[2017-12-18 09:24] LABS: HBSAg Index 0.19 S/CO (0-0.99); Hep B Surf Ag Non-Reactive S/CO (NonReactive)
--- NOTE | 2017-12-18 10:00 | PDOC.PN ---
- Subjective Encounter Start Date: 12/18/17 Encounter Start Time: 08:50 pt seen in dialysis room, she is very weak, no fever - Objective Resuscitation Status: Resuscitation Status FULL:Full Resuscitation MAR Reviewed: Yes Vital Signs & Weight: Vital Signs (12 hours) Temp Pulse Resp BP Pulse Ox 12/18/17 07:24 97.9 F 61 18 127/74 94 L 12/18/17 07:16 98 F 75 18 187/79 H 93 L Weight Weight 107 lb 8 oz I&O: 12/17/17 12/18/17 12/19/17 06:59 06:59 06:59 Intake Total 760 830 Output Total 325 1100 Balance 435 -270 Result Diagrams: 12/18/17 07:40 12/18/17 07:40 Phys Exam - Physical Examination Constitutional: NAD HEENT: PERRLA, moist MMs, sclera anicteric Neck: no JVD, supple Respiratory: no wheezing, no rales, no rhonchi Cardiovascular: RRR, no significant murmur, no rub Gastrointestinal: soft colostomy+, ilieal conduit+, nephrostomy tube+ Musculoskeletal: no edema, pulses present Neurological: non-focal Lymphatic: no nodes Psychiatric: normal affect Skin: no rash, normal turgor Dx/Plan (1) Encephalopathy acute Code(s): G93.40 - ENCEPHALOPATHY, UNSPECIFIED Status: Acute (2) Obstruction of urostomy catheter Code(s): T83.098A - [facility] COMPL OF OTHER URINARY CATHETER, INITIAL ENCOUNTER Status: Acute Comment: s/p stent exchange (3) Elevated troponin Code(s): R74.8 - ABNORMAL LEVELS OF OTHER SERUM ENZYMES Status: Acute (4) H/O carcinoma of bladder Code(s): Z85.51 - PERSONAL HISTORY OF MALIGNANT NEOPLASM OF BLADDER Status: Acute (5) ESRD on dialysis Code(s): N18.6 - END STAGE RENAL DISEASE; Z99.2 - DEPENDENCE ON RENAL DIALYSIS Status: Chronic (6) H/O malignant neoplasm of uterine body Code(s): Z85.42 - PERSONAL HISTORY OF MALIGNANT NEOPLASM OF OTH PRT UTERUS Status: Chronic (7) Macrocytic anemia Code(s): D53.9 - NUTRITIONAL ANEMIA, UNSPECIFIED Status: Chronic (8) Physical deconditioning Code(s): R53.81 - OTHER MALAISE Status: Chronic (9) Secondary hyperparathyroidism of renal origin Code(s): N25.81 - SECONDARY HYPERPARATHYROIDISM OF RENAL ORIGIN Status: Chronic - Plan cont current plan of care, continue antibiotics, PT/OT, social staff worker * will benefit from SNU placement * discussed with special education case manager * continue rocephin * on discharge omnicef * HD as per nephrology * medication reviewed as below * symptomatic treatment. Review of Systems - Review of Systems Constitutional: weakness. negative: fever, chills, sweats, malaise, other ENT: negative: Ear Pain, Ear Discharge, Nose Pain, Nose Discharge, Nose Congestion, Mouth Pain, Mouth Swelling, Throat Pain, Throat Swelling, Other Respiratory: negative: Cough, Dry, Shortness of Breath, Hemoptysis, SOB with Excertion, Pleuritic Pain, Sputum, Wheezing Cardiovascular: negative: chest pain, palpitations, orthopnea, paroxysmal nocturnal dyspnea, edema, light headedness, other Gastrointestinal: negative: Nausea, Vomiting, Abdominal Pain, Diarrhea, Constipation, Melena, Hematochezia, Other Genitourinary: negative: Dysuria, Frequency, Incontinence, Hematuria, Retention , Other Musculoskeletal: negative: Neck Pain, Shoulder Pain, Arm Pain, Back Pain, Hand Pain, Leg Pain, Foot Pain, Other Skin: negative: Rash, Lesions, Benjamin, Bruising, Other - Medications/Allergies Allergies/Adverse Reactions: Allergies Allergy/AdvReac Type Severity Reaction Status Date / Time erythromycin base Allergy Verified 12/15/17 00:02 fentanyl Allergy Verified 12/15/17 00:02 morphine Allergy Verified 12/15/17 00:02 naloxone [From Narcan] Allergy Verified 12/15/17 00:02 promethazine [From Phenergan] Allergy Verified 12/15/17 00:02 Medications: Current Medications Acetaminophen (Tylenol) 650 mg PO Q4H PRN PRN Reason: Headache/Fever or Mild Pain Hydrocodone Bitart/Acetaminophen ([place] 10/325) 1 tab PO Q6H PRN PRN Reason: Pain 4-6 Last Admin: 12/18/17 09:07 Dose: 1 tab Hydrocodone Bitart/Acetaminophen ([place] 10/325) 2 tab PO Q6H PRN PRN Reason: Pain 7-10 Last Admin: 12/16/17 03:55 Dose: 2 tab Al Hydroxide/Mg Hydroxide (Maalox) 15 ml PO Q4H PRN PRN Reason: Heartburn or Indigestion Artificial Tears (Tears Naturale) 0 drop EA EYE PRN PRN PRN Reason: Dry Eyes Clonidine (Catapres) 0.1 mg PO Q4H PRN PRN Reason: Systolic BP > 180 Last Admin: 12/17/17 13:04 Dose: 0.1 mg Famotidine (Pepcid) 20 mg PO DAILY [facility] Last Admin: 12/17/17 09:48 Dose: 20 mg Furosemide (Lasix) 80 mg PO DAILY [facility] Last Admin: 12/17/17 09:48 Dose: 80 mg Guaifenesin (Robitussin Sf) 200 mg PO Q4H PRN PRN Reason: Cough Hydralazine HCl (Apresoline) 10 mg SLOW IVP Q4H PRN PRN Reason: Systolic BP > 180 Ceftriaxone Sodium 2 gm/ (Sodium Chloride) 100 mls @ 200 mls/hr IVPB 1999 [facility] Last Admin: 12/17/17 20:51 Dose: 100 mls Loperamide HCl (Imodium) 2 mg PO PRN PRN PRN Reason: Diarrhea/Loose Stools Loratadine (Claritin) 10 mg PO DAILYPRN PRN PRN Reason: Sinus Symptoms Magnesium Hydroxide (Milk Of Magnesium) 30 ml PO DAILYPRN PRN PRN Reason: Constipation Metoclopramide HCl (Reglan) 10 mg IVP Q6H PRN PRN Reason: Nausea/Vomiting Mineral Oil/White Petrolatum (Eucerin Cream) 0 gm TOP BIDPRN PRN PRN Reason: Dry Skin Ondansetron HCl (Zofran Odt) 4 mg PO Q6H PRN PRN Reason: Nausea/Vomiting Last Admin: 12/15/17 10:56 Dose: 4 mg Ondansetron HCl (Zofran) 4 mg IVP Q6H PRN PRN Reason: Nausea/Vomiting Opium Tincture (Opium Tincture 10%) 2 ml PO HSPRN PRN PRN Reason: slow down stools Phenol (Chloraseptic [place] 180 Ml Bot) 0 ml PO PRN PRN PRN Reason: Sore Throat Ropinirole HCl (Requip) 0.25 mg PO [facility] Last Admin: 12/17/17 20:51 Dose: 0.25 mg Senna (Senokot) 2 tab PO HSPRN PRN PRN Reason: Constipation Sevelamer Carbonate (Renvela) 800 mg PO TID-WM [facility] Last Admin: 12/18/17 08:49 Dose: Not Given Sodium Chloride (Flush - Normal Saline) 10 ml IVF Q12HR [facility] Last Admin: 12/17/17 20:52 Dose: 10 ml Sodium Chloride (Flush - Normal Saline) 10 ml IVF PRN PRN PRN Reason: Saline Flush Sodium Chloride ([place] Nasal [place] 0.65%) 0 ml EA NARE QIDPRN PRN PRN Reason: Nasal Congestion Temazepam (Restoril) 15 mg PO HSPRN PRN PRN Reason: Insomnia Venlafaxine HCl (Effexor) 75 mg PO DAILY [facility] Last Admin: 12/17/17 09:48 Dose: 75 mg
[2017-12-18] MEDS: Ondansetron ODT 4 MG TAB PO PRN (10:19)
[2017-12-18] MEDS: Mag-Al 1200 mg/1200 mg/30 ML UDCUP PO PRN ×2 (10:27→20:34)
[2017-12-18] MEDS: Furosemide 80 MG TAB PO SCH ×2 (12:32→18:15)
[2017-12-18] MEDS: Famotidine 20 MG TAB PO SCH (12:32)
[2017-12-18] MEDS: cloNIDine 0.1 MG TAB PO PRN (18:15)
[2017-12-18] MEDS: rOPINIRole HCl 0.25 MG TAB PO SCH (20:34)
[2017-12-18] MEDS: cefTRIAXone\\ROCEPHIN 2 GM in Sodium Chloride 0.9% 100 ML IVPB SCH (20:35)
--- NOTE | 2017-12-19 07:18 | EKG ---
Test Reason : C/O CHEST PAIN Blood Pressure : / mmHG Vent. Rate : 069 BPM Atrial Rate : 069 BPM P-R Int : 126 ms QRS Dur : 086 ms QT Int : 418 ms P-R-T Axes : -01 069 071 degrees QTc Int : 447 ms Sinus rhythm with Premature atrial complexes Minimal voltage criteria for LVH, may be normal variant Early repolarization variant When compared with ECG of 17-DEC-2017 13:01, (Unconfirmed) Premature atrial complexes are now Present Confirmed by DR. Rene NEVILLE ([id number]) on 12/19/2017 7:18:16 AM Referred By: SELENE Confirmed By:DR. Rene NEVILLE
[2017-12-19] MEDS: Famotidine 20 MG TAB PO SCH (07:31)
[2017-12-19] MEDS: Sevelamer Carbonate 800 MG TAB PO SCH ×3 (07:31→17:14)
[2017-12-19] MEDS: Furosemide 80 MG TAB PO SCH (07:31)
[2017-12-19] MEDS ORDERED: Cefepime 2 GM in Sodium Chloride 0.9% 100 ML IVPB SCH (09:00)
[2017-12-19] MEDS: Cefepime 2 GM, Syringe 2.5 ML in Sterile Water 10 ML SLOW IVP SCH ×2 (09:45→20:04)
[2017-12-19] MEDS ORDERED: Vancomycin HCl 750 MG in Sodium Chloride 0.9% 250 ML 250 ML IVPB SCH (12:00)
[2017-12-19] MEDS: rOPINIRole HCl 0.25 MG TAB PO SCH (20:04)
[2017-12-19] MEDS ORDERED: Vancomycin HCl 1 GM in Premix Bag 1 BAG IVPB SCH (21:00)
--- NOTE | 2017-12-19 21:10 | PDOC.PN ---
- Subjective Encounter Start Date: 12/19/17 Encounter Start Time: 11:00 Subjective: pt up in bed wants to go home - Objective Resuscitation Status: Resuscitation Status FULL:Full Resuscitation Vital Signs & Weight: Vital Signs (12 hours) Temp Pulse Resp BP BP Pulse Ox 12/19/17 19:19 98.3 F 99 20 160/80 H 97 12/19/17 19:14 98.2 F 68 16 144/71 H 93 L 12/19/17 16:28 97.9 F 99 16 148/56 H 92 L 12/19/17 11:32 98.0 F 102 H 18 177/94 H 97 Weight Weight 107 lb 8 oz I&O: 12/18/17 12/19/17 12/20/17 06:59 06:59 06:59 Intake Total 830 130 550 Output Total 1100 75 200 Balance -270 55 350 Result Diagrams: 12/18/17 07:40 12/18/17 07:40 Phys Exam - Physical Examination HEENT: PERRLA, moist MMs, sclera anicteric, TM's clear, oral pharynx no lesions , 2+ tonsils Respiratory: no wheezing, no rales, no rhonchi, wheezing present, clear to auscultation bilateral Cardiovascular: RRR, no significant murmur, no rub, gallop, irregular Gastrointestinal: soft, positive bowel sounds colostomy and ileal conduit Dx/Plan - Plan * 1) Encephalopathy acute (2) Obstruction of urostomy catheter (3) Elevated troponin (4) H/O carcinoma of bladder (5) ESRD on dialysis (6) H/O malignant neoplasm of uterine body (7) Macrocytic anemia (8) Physical deconditioning (9) Secondary hyperparathyroidism of renal origin plan: Nephroureteral sents replaced over the weekend in [place]. Pt's cx indicates 3 bacteria. Most likley this was collected from her ileal conduit bag. since pt came in with AMS will change abx to cefepime. Micro called to run sensitivities for pseudomonas. pt's blood cx gram positve camilo. will all vanco for now. will consult ID. Review of Systems - Review of Systems Eyes: negative: Pain, Vision Change, Conjunctivae Inflammation, Eyelid Inflammation, Redness, Other Respiratory: negative: Cough, Dry, Shortness of Breath, Hemoptysis, SOB with Excertion, Pleuritic Pain, Sputum, Wheezing Gastrointestinal: negative: Nausea, Vomiting, Abdominal Pain, Diarrhea, Constipation, Melena, Hematochezia, Other - Medications/Allergies Allergies/Adverse Reactions: Allergies Allergy/AdvReac Type Severity Reaction Status Date / Time erythromycin base Allergy Verified 12/15/17 00:02 fentanyl Allergy Verified 12/15/17 00:02 morphine Allergy Verified 12/15/17 00:02 naloxone [From Narcan] Allergy Verified 12/15/17 00:02 promethazine [From Phenergan] Allergy Verified 12/15/17 00:02 Medications: Current Medications Acetaminophen (Tylenol) 650 mg PO Q4H PRN PRN Reason: Headache/Fever or Mild Pain Hydrocodone Bitart/Acetaminophen ([place] 10/325) 1 tab PO Q6H PRN PRN Reason: Pain 4-6 Last Admin: 12/18/17 20:34 Dose: 1 tab Hydrocodone Bitart/Acetaminophen ([place] 10/325) 2 tab PO Q6H PRN PRN Reason: Pain 7-10 Last Admin: 12/16/17 03:55 Dose: 2 tab Al Hydroxide/Mg Hydroxide (Maalox) 15 ml PO Q4H PRN PRN Reason: Heartburn or Indigestion Last Admin: 12/18/17 20:34 Dose: 15 ml Artificial Tears (Tears Naturale) 0 drop EA EYE PRN PRN PRN Reason: Dry Eyes Clonidine (Catapres) 0.1 mg PO Q4H PRN PRN Reason: Systolic BP > 180 Last Admin: 12/18/17 18:15 Dose: 0.1 mg Famotidine (Pepcid) 20 mg PO DAILY [facility] Last Admin: 12/19/17 07:31 Dose: 20 mg Furosemide (Lasix) 80 mg PO DAILY [facility] Last Admin: 12/19/17 07:31 Dose: 80 mg Guaifenesin (Robitussin Sf) 200 mg PO Q4H PRN PRN Reason: Cough Hydralazine HCl (Apresoline) 10 mg SLOW IVP Q4H PRN PRN Reason: Systolic BP > 180 Cefepime HCl 2 gm/ Syringe 2.5 (ml/ Sterile Water) 12.5 mls @ 150 mls/hr SLOW IVP Q12HR [facility] Last Admin: 12/19/17 20:04 Dose: 12.5 mls Loperamide HCl (Imodium) 2 mg PO PRN PRN PRN Reason: Diarrhea/Loose Stools Loratadine (Claritin) 10 mg PO DAILYPRN PRN PRN Reason: Sinus Symptoms Magnesium Hydroxide (Milk Of Magnesium) 30 ml PO DAILYPRN PRN PRN Reason: Constipation Metoclopramide HCl (Reglan) 10 mg IVP Q6H PRN PRN Reason: Nausea/Vomiting Mineral Oil/White Petrolatum (Eucerin Cream) 0 gm TOP BIDPRN PRN PRN Reason: Dry Skin Miscellaneous Medication (Pharmacy To Dose) 1 each IVPB [facility] Ondansetron HCl (Zofran Odt) 4 mg PO Q6H PRN PRN Reason: Nausea/Vomiting Last Admin: 12/18/17 10:19 Dose: 4 mg Ondansetron HCl (Zofran) 4 mg IVP Q6H PRN PRN Reason: Nausea/Vomiting Opium Tincture (Opium Tincture 10%) 2 ml PO HSPRN PRN PRN Reason: slow down stools Phenol (Chloraseptic [place] 180 Ml Bot) 0 ml PO PRN PRN PRN Reason: Sore Throat Ropinirole HCl (Requip) 0.25 mg PO [facility] Last Admin: 12/19/17 20:04 Dose: 0.25 mg Senna (Senokot) 2 tab PO HSPRN PRN PRN Reason: Constipation Sevelamer Carbonate (Renvela) 800 mg PO [facility] Last Admin: 12/19/17 17:14 Dose: Not Given Sodium Chloride (Flush - Normal Saline) 10 ml IVF Q12HR [facility] Last Admin: 12/19/17 20:04 Dose: 10 ml Sodium Chloride (Flush - Normal Saline) 10 ml IVF PRN PRN PRN Reason: Saline Flush Sodium Chloride ([place] Nasal [place] 0.65%) 0 ml EA NARE QIDPRN PRN PRN Reason: Nasal Congestion Temazepam (Restoril) 15 mg PO HSPRN PRN PRN Reason: Insomnia Venlafaxine HCl (Effexor) 75 mg PO DAILY [facility] Last Admin: 12/19/17 07:31 Dose: 75 mg
[2017-12-20] MEDS: Sevelamer Carbonate 800 MG TAB PO SCH ×3 (07:27→17:07)
[2017-12-20 08:10] LABS: #Eosinphils 0.1 thou/uL (0.0-0.7); #Lymphocytes 1.3 thou/uL (1.20-3.40); #Monocytes 0.5 thou/uL (0.11-0.59); #Neutrophils 9.2 thou/uL (1.40-6.50); %Basophils 0.1 % (0.0-1.0); %Eosinophils 0.5 % (0.0-10.0); %Lymphocytes 11.5 % (21.0-51.0); %Monocytes 4.3 % (0.0-10.0); %Neutrophils 83.7 % (42.0-75.0); Hemoglobin 10.6 g/dL (12.0-16.0); Mean Corpuscular HGB CONC 32.3 g/dL (32.0-36.0); Mean Corpuscular Hemoglobin 32.2 pg (27.0-31.0); Mean Corpuscular Volume 99.6 fl (81.0-99.0); Mean Platelet Volume 7.4 fL (7.4-10.4); Platelet Count 188 thou/uL (130-400); RBC Distribution Width 11.9 % (11.5-14.5)
[2017-12-20 08:27] LABS: Anion Gap 17 mmol/L (10-20); BUN (Urea Nitrogen) 38 mg/dL (9.8-20.1); Calc. Creatinine Clearance 8 mL/min (70-130); Calcium 9.7 mg/dL (7.8-10.44); Carbon Dioxide 25 mmol/L (23-31); Chloride 97 mmol/L (98-107); Estimated GFR-MDRD 9; Glucose 98 mg/dL (80-115); Potassium 4.4 mmol/L (3.5-5.1); Sodium 135 mmol/L (136-145)
[2017-12-20] MEDS: HYDROcodone/Acetaminophen 10/325 mg Tablet PO PRN (08:54)
[2017-12-20] MEDS: Ondansetron ODT 4 MG TAB PO PRN (08:55)
[2017-12-20] MEDS: Cefepime 2 GM, Syringe 2.5 ML in Sterile Water 10 ML SLOW IVP SCH (11:30)
[2017-12-20] MEDS: Famotidine 20 MG TAB PO SCH (11:30)
[2017-12-20] MEDS: Furosemide 80 MG TAB PO SCH (11:30)
[2017-12-20 13:01] LABS: Vancomycin, Trough 7.8 ug/mL
--- NOTE | 2017-12-20 17:15 | PDOC.PN ---
- Subjective Encounter Start Date: 12/20/17 Encounter Start Time: 12:30 Subjective: pt up in bed appears confused - Objective Resuscitation Status: Resuscitation Status FULL:Full Resuscitation Vital Signs & Weight: Vital Signs (12 hours) Temp Pulse Resp BP Pulse Ox 12/20/17 16:49 98.2 F 78 20 158/78 H 96 12/20/17 07:10 98.3 F 99 20 Weight Weight 107 lb 8 oz I&O: 12/19/17 12/20/17 12/21/17 06:59 06:59 06:59 Intake Total 130 670 Output Total 75 575 Balance 55 95 Result Diagrams: 12/20/17 08:03 12/20/17 08:03 Phys Exam - Physical Examination HEENT: PERRLA, moist MMs, sclera anicteric, TM's clear, oral pharynx no lesions , 2+ tonsils Respiratory: no wheezing, no rales, no rhonchi, wheezing present, clear to auscultation bilateral Cardiovascular: RRR, no significant murmur, no rub, gallop, irregular Gastrointestinal: soft, non-tender, no distention, positive bowel sounds Dx/Plan - Plan 1) Encephalopathy acute (2) Obstruction of urostomy catheter (3) Elevated troponin (4) H/O carcinoma of bladder (5) ESRD on dialysis (6) H/O malignant neoplasm of uterine body (7) Macrocytic anemia (8) Physical deconditioning (9) Secondary hyperparathyroidism of renal origin plan: Nephroureteral sents replaced over the weekend in [place]. Pt's cx indicates 3 bacteria. Most likley this was collected from her ileal conduit bag. since pt came in with AMS will change abx to cefepime. Micro called to run sensitivities for pseudomonas. pt's blood cx gram positve camilo. will all vanco for now. will consult ID. 12/20 vanco discontinued due to cx appears contaminant. will continue current tx. Awaiting ID recommendation. Pt has mild cognitive impairment not sure what her baseline is. She lives alone and i do not think she is safe to be discharged home. Spoke with her friends about how important it is for the pt to go to rehab. will also get palliative care consult since pt is full code. Her poa is her nephew. * . Review of Systems - Review of Systems Eyes: negative: Pain, Vision Change, Conjunctivae Inflammation, Eyelid Inflammation, Redness, Other ENT: negative: Ear Pain, Ear Discharge, Nose Pain, Nose Discharge, Nose Congestion, Mouth Pain, Mouth Swelling, Throat Pain, Throat Swelling, Other Respiratory: negative: Cough, Dry, Shortness of Breath, Hemoptysis, SOB with Excertion, Pleuritic Pain, Sputum, Wheezing Cardiovascular: negative: chest pain, palpitations, orthopnea, paroxysmal nocturnal dyspnea, edema, light headedness, other Gastrointestinal: negative: Nausea, Vomiting, Abdominal Pain, Diarrhea, Constipation, Melena, Hematochezia, Other Genitourinary: negative: Dysuria, Frequency, Incontinence, Hematuria, Retention , Other - Medications/Allergies Allergies/Adverse Reactions: Allergies Allergy/AdvReac Type Severity Reaction Status Date / Time erythromycin base Allergy Verified 12/15/17 00:02 fentanyl Allergy Verified 12/15/17 00:02 morphine Allergy Verified 12/15/17 00:02 naloxone [From Narcan] Allergy Verified 12/15/17 00:02 promethazine [From Phenergan] Allergy Verified 12/15/17 00:02 Medications: Current Medications Acetaminophen (Tylenol) 650 mg PO Q4H PRN PRN Reason: Headache/Fever or Mild Pain Hydrocodone Bitart/Acetaminophen ([place] 10/325) 1 tab PO Q6H PRN PRN Reason: Pain 4-6 Last Admin: 12/18/17 20:34 Dose: 1 tab Hydrocodone Bitart/Acetaminophen ([place] 10/325) 2 tab PO Q6H PRN PRN Reason: Pain 7-10 Last Admin: 12/20/17 08:54 Dose: 2 tab Al Hydroxide/Mg Hydroxide (Maalox) 15 ml PO Q4H PRN PRN Reason: Heartburn or Indigestion Last Admin: 12/18/17 20:34 Dose: 15 ml Artificial Tears (Tears Naturale) 0 drop EA EYE PRN PRN PRN Reason: Dry Eyes Clonidine (Catapres) 0.1 mg PO Q4H PRN PRN Reason: Systolic BP > 180 Last Admin: 12/18/17 18:15 Dose: 0.1 mg Famotidine (Pepcid) 20 mg PO DAILY [facility] Last Admin: 12/20/17 11:30 Dose: Not Given Furosemide (Lasix) 80 mg PO DAILY [facility] Last Admin: 12/20/17 11:30 Dose: Not Given Guaifenesin (Robitussin Sf) 200 mg PO Q4H PRN PRN Reason: Cough Hydralazine HCl (Apresoline) 10 mg SLOW IVP Q4H PRN PRN Reason: Systolic BP > 180 Cefepime HCl 1 gm/Miscellaneous Medication 1 each/ Sterile Water 10 mls @ 120 mls/hr SLOW IVP 2100 [facility] Loperamide HCl (Imodium) 2 mg PO PRN PRN PRN Reason: Diarrhea/Loose Stools Loratadine (Claritin) 10 mg PO DAILYPRN PRN PRN Reason: Sinus Symptoms Magnesium Hydroxide (Milk Of Magnesium) 30 ml PO DAILYPRN PRN PRN Reason: Constipation Metoclopramide HCl (Reglan) 10 mg IVP Q6H PRN PRN Reason: Nausea/Vomiting Mineral Oil/White Petrolatum (Eucerin Cream) 0 gm TOP BIDPRN PRN PRN Reason: Dry Skin Ondansetron HCl (Zofran Odt) 4 mg PO Q6H PRN PRN Reason: Nausea/Vomiting Last Admin: 12/20/17 08:55 Dose: 4 mg Ondansetron HCl (Zofran) 4 mg IVP Q6H PRN PRN Reason: Nausea/Vomiting Opium Tincture (Opium Tincture 10%) 2 ml PO HSPRN PRN PRN Reason: slow down stools Phenol (Chloraseptic [place] 180 Ml Bot) 0 ml PO PRN PRN PRN Reason: Sore Throat Ropinirole HCl (Requip) 0.25 mg PO [facility] Last Admin: 12/19/17 20:04 Dose: 0.25 mg Senna (Senokot) 2 tab PO HSPRN PRN PRN Reason: Constipation Sevelamer Carbonate (Renvela) 800 mg PO TID-WM [facility] Last Admin: 12/20/17 17:07 Dose: 800 mg Sodium Chloride (Flush - Normal Saline) 10 ml IVF Q12HR [facility] Last Admin: 12/20/17 09:34 Dose: Not Given Sodium Chloride (Flush - Normal Saline) 10 ml IVF PRN PRN PRN Reason: Saline Flush Sodium Chloride ([place] Nasal [place] 0.65%) 0 ml EA NARE QIDPRN PRN PRN Reason: Nasal Congestion Temazepam (Restoril) 15 mg PO HSPRN PRN PRN Reason: Insomnia Venlafaxine HCl (Effexor) 75 mg PO DAILY [facility] Last Admin: 12/20/17 11:30 Dose: Not Given
[2017-12-20] MEDS: rOPINIRole HCl 0.25 MG TAB PO SCH (20:29)
[2017-12-20] MEDS: Cefepime 1 GM, Admixture Fee 1 EACH in Sterile Water 10 ML SLOW IVP SCH (20:30)
--- NOTE | 2017-12-21 01:42 | CON ---
DATE OF CONSULTATION: 12/20/2017 REASON FOR CONSULTATION: Urinary tract infection. HISTORY OF PRESENT ILLNESS: A 72-year-old whom I had seen a few years ago and has a history of prior uterine and cervical cancer treated with resection, colostomy, urostomy developed complications related to therapy with obstruction of the renal outflow tract, which required renal stents and eventually placement of bilateral percutaneous nephrostomy tubes. She also had a right lower quadrant ileal conduit, which is not functional because of the strictures in the ureters. The initial findings in the physical examination demonstrated BP 170/81, pulse 88, respirations 18, temperature 97.8, O2 sat 95%. She was appeared chronically and acutely ill, although she is alert. Neck was supple. Chest with diminished breath sounds at bases. S1, S2 without murmurs. Abdomen soft, mild tenderness. Initial lab results showed white cell count 9.7 with 74 % neutrophils, hemoglobin 10.5, platelets 227. Chemistry with a creatinine is 4.85 and sodium 135, carbon dioxide 19. Liver profile within normal limits. Albumin 3.7. Urinalysis with greater than 50 wbc's. Vancomycin trough 7.8. Hepatitis surface antigen nonreactive. She had a urine culture with Citrobacter freundii, Proteus mirabilis, and Pseudomonas. Pseudomonas susceptibility is not available yet. The Citrobacter was resistant to cefoxitin , Cipro, levofloxacin, trimethoprim and sulfa. Proteus was pollard-susceptible except for nitrofurantoin and in the one set of blood culture with presumptive corynebacterium species. Currently after dialysis, she is not willing to talk to me, she barely woke up. According to family members and friends, she was easily arousable just a few hours before. She has had no diarrhea, no seizure activity. PAST MEDICAL HISTORY: Includes cervical uterine cancer with pelvic reconstruction, extensive treatment with eventual development of obstructive uropathy requiring ileal conduit placement. She had stenosis of the ureters and now has a percutaneous nephrostomies, history of hypertension, history of prior UTIs, dog bite with cellulitis, depression, Raynaud's phenomenon, peripheral vascular disease. PAST SURGICAL HISTORY: Includes colostomy, pelvic exenteration, PICC line placements and removal, AV fistula placement for end-stage renal disease treatment of the dialysis. CURRENT MEDICATIONS: Hydrocodone, cefepime, famotidine, loperamide, metoclopramide, ondansetron, ropinirole, Senokot, venlafaxine, and temazepam. PHYSICAL EXAMINATION: VITAL SIGNS: Patient has remained afebrile through the hospital stay, pulse 78 , respirations 20, O2 sat 96%. SKIN: Shows slight erythema in the presacral region, a few areas of excoriation in the lower extremities. Percutaneous nephrostomy tubes. She has a peripheral IV access. No lymphadenopathy. HEENT: Ocular movements are conjugate. Oral cavity dry. Still quite a few teeth in place with a lot of decay. NECK: Supple. No jugular vein distention. LUNGS: Symmetric air entry, faint basilar crackles. CARDIOVASCULAR: S1, S2, regular rate with soft aortic murmur. ABDOMEN: Soft, not distended, or tender. No ascites noted. She has 1+ edema lower extremities. Pulses 1+ in dorsalis pedis. NEUROLOGIC: Plantar responses are indifferent. She was somnolent after dialysis and was not willing to be interviewed during the examination. LABORATORY DATA AND X-RAY FINDINGS: Latest white cell count 11,000, hemoglobin 10.6, platelets 188 with 82% neutrophils. Chemistry with sodium 139, creatinine 4.92. AST 20, ALT 17. IMAGING STUDIES: There is head CT with small vessel disease. Dr. Fernandez from Urology has evaluated the patient. ASSESSMENT: Possible obstructive uropathy with need for placement of nephrostomy tubes, possible invasive urinary tract infection. He recommended replacement and I do not see the replacement has been accomplished yet, but we will review that assessment, pelvic malignancy status post radical surgery and radiation therapy with development of the usual complication of obstructive uropathy, which has progressed all the way to placement of an ileal conduit, which failed and now she has bilateral nephrostomy tubes, has had prior recurrent infections and she has end-stage renal disease and is on hemodialysis right now. DISCUSSION: The patient has neutrophilia with a left shift and abnormal urinalysis which is expected. The organisms in the culture are sensitive to the cefepime; however, the Pseudomonas has not yet been susceptibility tested. The nephrostomy tubes apparently have been ordered to be replaced by urologist. Imaging study might be required to evaluate for the development of complications related to the recurrent pyogenic infections. Duration of tx approx 2 weeks but this is not evidence based in the presence of nephrostomy tubes. In this situation maintenance of patency and drainage is the most important goal. A few years ago, patient was considering hospice. She obviously has changed her mind and maybe palliative care needs to be reconsidered. SAWYER
[2017-12-21] MEDS: Famotidine 20 MG TAB PO SCH (08:04)
[2017-12-21] MEDS: Sevelamer Carbonate 800 MG TAB PO SCH ×3 (08:04→18:00)
[2017-12-21] MEDS: Furosemide 80 MG TAB PO SCH (08:05)
[2017-12-21] MEDS ORDERED: Cefepime 1 GM, Admixture Fee 1 EACH in Sterile Water 10 ML SLOW IVP SCH (09:00)
--- NOTE | 2017-12-21 13:35 | PDOC.PN ---
- Subjective Encounter Start Date: 12/21/17 Encounter Start Time: 11:45 Subjective: pt up in bed eating, friends at bedside. No compalins - Objective Resuscitation Status: Resuscitation Status DNR:Do Not Resuscitate Vital Signs & Weight: Vital Signs (12 hours) Temp Pulse Resp BP Pulse Ox 12/21/17 12:00 98.3 F 98 14 160/81 H 97 12/21/17 08:00 98.2 F 104 H 14 165/79 H 98 12/21/17 02:27 96 Weight Weight 107 lb 8 oz I&O: 12/20/17 12/21/17 12/22/17 06:59 06:59 06:59 Intake Total 670 3440 360 Output Total 575 310 Balance 95 3130 360 Result Diagrams: 12/20/17 08:03 12/20/17 08:03 Phys Exam - Physical Examination HEENT: PERRLA, moist MMs, sclera anicteric, TM's clear, oral pharynx no lesions , 2+ tonsils Neck: no nodes, no JVD, supple, full ROM Respiratory: no wheezing, no rales, no rhonchi, wheezing present, clear to auscultation bilateral Cardiovascular: RRR, no significant murmur, no rub, gallop, irregular pt has colostomy and ileal conduit Musculoskeletal: no edema, pulses present, edema present Dx/Plan - Plan 1) Encephalopathy acute resolved (2) Obstruction of urostomy catheter (3) Elevated troponin (4) H/O carcinoma of bladder (5) ESRD on dialysis (6) H/O malignant neoplasm of uterine body (7) Macrocytic anemia (8) Physical deconditioning (9) Secondary hyperparathyroidism of renal origin plan: Nephroureteral sents replaced over the weekend in [place]. Pt's cx indicates 3 bacteria. Most likley this was collected from her ileal conduit bag. since pt came in with AMS will change abx to cefepime. Micro called to run sensitivities for pseudomonas. pt's blood cx gram positve camilo. will all vanco for now. will consult ID. 12/20 vanco discontinued due to cx appears contaminant. will continue current tx. Awaiting ID recommendation. Pt has mild cognitive impairment not sure what her baseline is. She lives alone and i do not think she is safe to be discharged home. Spoke with her friends about how important it is for the pt to go to rehab. will also get palliative care consult since pt is full code. Her poa is her nephew. / Confirmed with pt and family pt is DNR. cx sensitive to cefepime will await ID's recommendation. pt to go to snf. * . Review of Systems - Review of Systems Eyes: negative: Pain, Vision Change, Conjunctivae Inflammation, Eyelid Inflammation, Redness, Other ENT: negative: Ear Pain, Ear Discharge, Nose Pain, Nose Discharge, Nose Congestion, Mouth Pain, Mouth Swelling, Throat Pain, Throat Swelling, Other Respiratory: negative: Cough, Dry, Shortness of Breath, Hemoptysis, SOB with Excertion, Pleuritic Pain, Sputum, Wheezing Cardiovascular: negative: chest pain, palpitations, orthopnea, paroxysmal nocturnal dyspnea, edema, light headedness, other Gastrointestinal: negative: Nausea, Vomiting, Abdominal Pain, Diarrhea, Constipation, Melena, Hematochezia, Other - Medications/Allergies Allergies/Adverse Reactions: Allergies Allergy/AdvReac Type Severity Reaction Status Date / Time erythromycin base Allergy Verified 12/15/17 00:02 fentanyl Allergy Verified 12/15/17 00:02 morphine Allergy Verified 12/15/17 00:02 naloxone [From Narcan] Allergy Verified 12/15/17 00:02 promethazine [From Phenergan] Allergy Verified 12/15/17 00:02 Medications: Current Medications Acetaminophen (Tylenol) 650 mg PO Q4H PRN PRN Reason: Headache/Fever or Mild Pain Hydrocodone Bitart/Acetaminophen ([place] 10/325) 1 tab PO Q6H PRN PRN Reason: Pain 4-6 Last Admin: 12/18/17 20:34 Dose: 1 tab Hydrocodone Bitart/Acetaminophen ([place] 10/325) 2 tab PO Q6H PRN PRN Reason: Pain 7-10 Last Admin: 12/20/17 08:54 Dose: 2 tab Al Hydroxide/Mg Hydroxide (Maalox) 15 ml PO Q4H PRN PRN Reason: Heartburn or Indigestion Last Admin: 12/18/17 20:34 Dose: 15 ml Artificial Tears (Tears Naturale) 0 drop EA EYE PRN PRN PRN Reason: Dry Eyes Clonidine (Catapres) 0.1 mg PO Q4H PRN PRN Reason: Systolic BP > 180 Last Admin: 12/18/17 18:15 Dose: 0.1 mg Famotidine (Pepcid) 20 mg PO DAILY [facility] Last Admin: 12/21/17 08:04 Dose: 20 mg Furosemide (Lasix) 80 mg PO DAILY [facility] Last Admin: 12/21/17 08:05 Dose: 80 mg Guaifenesin (Robitussin Sf) 200 mg PO Q4H PRN PRN Reason: Cough Hydralazine HCl (Apresoline) 10 mg SLOW IVP Q4H PRN PRN Reason: Systolic BP > 180 Cefepime HCl 1 gm/Miscellaneous Medication 1 each/ Sterile Water 10 mls @ 120 mls/hr SLOW IVP 2100 [facility] Last Admin: 12/20/17 20:30 Dose: 10 mls Loperamide HCl (Imodium) 2 mg PO PRN PRN PRN Reason: Diarrhea/Loose Stools Loratadine (Claritin) 10 mg PO DAILYPRN PRN PRN Reason: Sinus Symptoms Magnesium Hydroxide (Milk Of Magnesium) 30 ml PO DAILYPRN PRN PRN Reason: Constipation Metoclopramide HCl (Reglan) 10 mg IVP Q6H PRN PRN Reason: Nausea/Vomiting Mineral Oil/White Petrolatum (Eucerin Cream) 0 gm TOP BIDPRN PRN PRN Reason: Dry Skin Ondansetron HCl (Zofran Odt) 4 mg PO Q6H PRN PRN Reason: Nausea/Vomiting Last Admin: 12/20/17 08:55 Dose: 4 mg Ondansetron HCl (Zofran) 4 mg IVP Q6H PRN PRN Reason: Nausea/Vomiting Opium Tincture (Opium Tincture 10%) 2 ml PO HSPRN PRN PRN Reason: slow down stools Phenol (Chloraseptic [place] 180 Ml Bot) 0 ml PO PRN PRN PRN Reason: Sore Throat Ropinirole HCl (Requip) 0.25 mg PO [facility] Last Admin: 12/20/17 20:29 Dose: 0.25 mg Senna (Senokot) 2 tab PO HSPRN PRN PRN Reason: Constipation Sevelamer Carbonate (Renvela) 800 [address]-[facility] Last Admin: 12/21/17 11:49 Dose: 800 mg Sodium Chloride (Flush - Normal Saline) 10 ml IVF Q12HR [facility] Last Admin: 12/21/17 08:05 Dose: 10 ml Sodium Chloride (Flush - Normal Saline) 10 ml IVF PRN PRN PRN Reason: Saline Flush Sodium Chloride ([place] Nasal [place] 0.65%) 0 ml EA NARE QIDPRN PRN PRN Reason: Nasal Congestion Temazepam (Restoril) 15 mg PO HSPRN PRN PRN Reason: Insomnia Venlafaxine HCl (Effexor) 75 mg PO DAILY [facility] Last Admin: 12/21/17 08:04 Dose: 75 mg
--- NOTE | 2017-12-21 20:23 | PRG ---
DATE OF SERVICE: 12/21/2017 SUBJECTIVE: Not feeling well today. She is having some pain in the abdominal area, mostly in the barragan prapubic location and some back pain as well. She was having a headache which has gone away at this time. OBJECTIVE: GENERAL: She is oriented, pleasant, follows commands. No respiratory symptoms. Chronically ill-alex earing. VITAL SIGNS: T-max was 98.2, blood pressure 170/80, pulse 101, respirations 18, O2 sat 97%. The temitope fowler has a peripheral IV access. She has bilateral nephrostomy tubes, which had been replaced recent ly in [place]. No vomiting, no diarrhea. HEENT: Ocular movements conjugate. Sclerae white. Pupils are equal and reactive. Oral cavity some what dry. Still quite a few teeth in place. NECK: Supple. No jugular vein distention. LUNGS: With symmetric air entry. HEART: S1, S2, regular rate without murmurs. ABDOMEN: Mild to moderately tender in the lower quadrants. The nephrostomy tube sites appear to be intact. LABORATORY DATA: White cell count 11,000, hemoglobin 10.6, platelets 188 with 82% neutrophils. Sodi um 135, creatinine 4.96, glucose 97. Lactic acid is 1.2. Microbiology with urine culture, Citrobact er freundii, Proteus mirabilis and Pseudomonas aeruginosa. The Citrobacter is resistant to quinolone s. The Proteus mirabilis is susceptible to all antimicrobials except for nitrofurantoin and Pseudomo shazia aeruginosa is susceptible to levofloxacin. ASSESSMENT AND DISCUSSION: Cervical and uterine cancer with pelvic reconstruction, multiple interven tions with eventual obstructive uropathy with end-stage renal disease requiring hemodialysis also wit h pyonephrosis and still significant production of urine requiring percutaneous drainage both sides. Obviously surgeon in [place] or in [place] has felt that she would not be a candidate for bilateral n ephrectomies. At this time, she presents with symptoms are suggestive of pyelonephritis. In view of the susceptibility profile, we will either have to give her to have a surgeon place a tunneled yamile ter in the neck or use gentamicin plus levofloxacin. Gentamicin could be given at dialysis. I would not treat her more than a week or 10 days; in addition to that, we would give her ciprofloxacin adju sted for renal function 250 mg twice daily for about 2 weeks.
[2017-12-21] MEDS: rOPINIRole HCl 0.25 MG TAB PO SCH (21:24)
[2017-12-21] MEDS: Cefepime 1 GM, Admixture Fee 1 EACH in Sterile Water 10 ML SLOW IVP SCH (21:24)
[2017-12-22] MEDS: Furosemide 80 MG TAB PO SCH ×2 (07:01→12:11)
[2017-12-22] MEDS: Sevelamer Carbonate 800 MG TAB PO SCH ×3 (07:01→17:23)
[2017-12-22] MEDS: Famotidine 20 MG TAB PO SCH ×2 (07:01→12:10)
[2017-12-22] MEDS ORDERED: Lidocaine 5% Patch TD SCH (14:00)
[2017-12-22 16:21] VITALS: BP 157/85; TEMP 97.8
[2017-12-23] MEDS ORDERED: Lidocaine Patch Removal 1 EACH TOP SCH (02:00)
--- NOTE | 2017-12-23 02:33 | DIS ---
DATE OF ADMISSION: 12/15/2017 DATE OF DISCHARGE: 12/22/2017 DISCHARGE DIAGNOSES: 1. Pyelonephritis. 2. Acute encephalopathy. 3. Obstruction of urostomy catheter. 4. Elevated tropes. 5. End-stage renal disease, on dialysis. HOSPITAL COURSE: The patient is a very pleasant 72-year-old female who lives alone who presented to the hospital for altered mental status. The patient was found to be very altered and lethargic and h ad elevated blood pressure. The patient at that time initially was put on prophylactic IV antibiotic s for possible UTI infection since she does have bilateral nephrostomy tubes. The patient had a CT b rain which did not indicate any acute processes. The patient was seen by Urology in the hospital sin given her ureteral stents that she has placed on for occlusion of bilateral nephroureteral stents. The patient underwent exchange of those nephroureteral at [place], which was organized by the urolog ist. The patient's culture indicated, 1. Citrobacter. 2. Proteus mirabilis. 3. Pseudomonas. The patient initially was put on cefepime. Her antibiotics are changed to gentamicin via dialysis fo r 10 days and also for ciprofloxacin 250 mg p.o. b.i.d. for approximately 2 weeks. She also had one blood culture that was positive for corynebacterium; however, this appeared to be a contaminant. I c onsulted Infectious Disease in regards to the course of the patient's antibiotics. The patient has a colostomy and ileal conduit with nephrostomy tubes for history of malignant neoplasm of the uterus a nd the cervix and also bladder carcinoma, which required a cholecystectomy and ileal conduit. She is currently on hemodialysis and will continue her normal hemodialysis schedule. The patient also was found to be very malnourished and upon talking to patient's friends, they stated that patient lives i n a trailer and questionable issue of hoarding. I did speak with case management. The patient will require Adult Protective Services to check her mobile home for safety reasons on discharge from her s [facility] facility. Also, encouraged the friends to vocalize this important finding of patient' s living status prior to her being discharged from the intermediate facility. The patient most kaylee nelson has baseline underlying dementia and I do not think she is safe to drive on her own. The patien t has been confirmed that she is a DNR. DISCHARGE MEDICATIONS: As the following, the patient will receive gentamicin for dialysis for a tota l of 10 days, ciprofloxacin 250 mg b.i.d. for 2 weeks. I did prescribe a Lidoderm patch to her lower back pain, Senokot 2 tabs at bedtime p.r.n., temazepam 50 mg at bedtime p.r.n., clonidine 0.1 mg q.4 hours p.r.n., Lasix 80 mg daily, hydrochlorothiazide 1 q.6 hours, venlafaxine, Effexor 225 mg p.o. d aily, Renvela 2400 mg p.o. t.i.d., vitamin B12 and ropinirole 0.25 mg p.o. at bedtime and that is abo ut it. PHYSICAL EXAMINATION: VITAL SIGNS: Temperature 97.7, 91 heart rate, 16, 98% room air, blood pressure 158/80. GENERAL: She is awake, alert, oriented x3, does not appear in distress. CARDIOVASCULAR: S1, S2 present. No murmurs, rubs or gallops. ABDOMEN: Soft, nontender. She does have an ileal conduit and a colostomy and she has bilateral neph rostomy tubes. EXTREMITIES: Lower extremity, no edema. Pedal pulses are present x2. DISCHARGE INSTRUCTIONS: The patient will be discharged to intermediate facility. Follow up as ou tpatient with her primary care doctor.
== END 2017-12-22 18:51 | DRG 698 ==
LOC: ERS 17:05 → 2NO 20:40 → T4-A 12-16 16:46
PROVIDERS: ADMIT Internal Medicine; ATTEND Internal Medicine
PROC: 5A1D70Z Performance of Urinary Filtration, Intermittent, Less than 6 Hours Per Day (ICD-10-PCS; principal; 2017-12-15)
PROC: 5A1D70Z Performance of Urinary Filtration, Intermittent, Less than 6 Hours Per Day (ICD-10-PCS; 2017-12-18)
PROC: 5A1D70Z Performance of Urinary Filtration, Intermittent, Less than 6 Hours Per Day (ICD-10-PCS; 2017-12-20)
PROC: 5A1D70Z Performance of Urinary Filtration, Intermittent, Less than 6 Hours Per Day (ICD-10-PCS; 2017-12-22)
DX: T83.098A Other mechanical complication of other urinary catheter, initial encounter (principal); G93.41 Metabolic encephalopathy; N18.6 End stage renal disease; N12 Tubulo-interstitial nephritis, not specified as acute or chronic; I12.0 Hypertensive chronic kidney disease with stage 5 chronic kidney disease or end stage renal disease; I24.8 Other forms of acute ischemic heart disease; E44.1 Mild protein-calorie malnutrition; N25.81 Secondary hyperparathyroidism of renal origin; D63.1 Anemia in chronic kidney disease; F32.9 Major depressive disorder, single episode, unspecified; M19.90 Unspecified osteoarthritis, unspecified site; I73.9 Peripheral vascular disease, unspecified; N13.5 Crossing vessel and stricture of ureter without hydronephrosis; Z66 Do not resuscitate; B96.4 Proteus (mirabilis) (morganii) as the cause of diseases classified elsewhere; B96.5 Pseudomonas (aeruginosa) (mallei) (pseudomallei) as the cause of diseases classified elsewhere; B96.89 Other specified bacterial agents as the cause of diseases classified elsewhere; Z68.21 Body mass index [BMI] 21.0-21.9, adult; Z51.5 Encounter for palliative care; Z99.2 Dependence on renal dialysis; Z85.41 Personal history of malignant neoplasm of cervix uteri; Z85.42 Personal history of malignant neoplasm of other parts of uterus; Z88.1 Allergy status to other antibiotic agents; Z88.5 Allergy status to narcotic agent; Z88.8 Allergy status to other drugs, medicaments and biological substances; Z79.52 Long term (current) use of systemic steroids; Z79.899 Other long term (current) drug therapy; Z85.51 Personal history of malignant neoplasm of bladder; Z90.6 Acquired absence of other parts of urinary tract; Z93.3 Colostomy status; Y84.2 Radiological procedure and radiotherapy as the cause of abnormal reaction of the patient, or of later complication, without mention of misadventure at the time of the procedure; Y83.8 Other surgical procedures as the cause of abnormal reaction of the patient, or of later complication, without mention of misadventure at the time of the procedure
CPT/HCPCS: 36415; 70450; 71045; 80048; 80053; 80069; 80202; 81003; 81015; 82553; 83605; 84484; 85007; 85025; 85027; 87040; 87077; 87086; 87186; 87340; 90935; 93005; 93010; 96361; 96365; A4216; G0257; G8978-GP-CK; G8979-GP-CI; J0692; J0696; J3370; J7050; Q0162

== ENCOUNTER 2017-12-29 05:33 | Observation (INO) | payer MEDICARE, BC ==
[2017-12-29 05:59] LABS: Bilirubin Negative (Negative); Blood, Urine Trace (Negative); Clarity CLOUDY (Clear); Glucose, Urine (Dipstick) 100 mg/dL (Negative); Leukocyte Trace (Negative); Nitrite Negative (Negative); Protein, Urine (Dipstick) 100 mg/dL (Neg-Trace); Specific Gravity, Urine 1.006 (1.002-1.036); Urobilinogen 0.2 mg/dL (0.2-1.0); pH, Urine 8.5 (5.0-9.0)
[2017-12-29 06:02] LABS: Bacteria/HPF Rare-Few HPF (None Seen); Hyaline Casts/LPF 0-3 HYALINE CAST LPF (0-3 Hyaline); Pathc Cast-AUWi Flag 0.43 (0-2.49)
[2017-12-29 06:27] LABS: Renal Epithelial None Seen HPF (0-3); Transitional Epithelial 0-3 HPF (0-3)
[2017-12-29 06:46] LABS: #Basophils 0.1 thou/uL (0.0-0.2); #Eosinphils 0.1 thou/uL (0.0-0.7); #Lymphocytes 1.8 thou/uL (1.20-3.40); #Monocytes 0.5 thou/uL (0.11-0.59); #Neutrophils 8.9 thou/uL (1.40-6.50); %Basophils 0.5 % (0.0-1.0); %Eosinophils 0.5 % (0.0-10.0); %Monocytes 4.1 % (0.0-10.0); %Neutrophils 78.9 % (42.0-75.0); Hemoglobin 11.1 g/dL (12.0-16.0); Mean Corpuscular HGB CONC 32.7 g/dL (32.0-36.0); Mean Corpuscular Hemoglobin 32.6 pg (27.0-31.0); Mean Corpuscular Volume 99.7 fl (81.0-99.0); Mean Platelet Volume 6.9 fL (7.4-10.4); Platelet Count 217 thou/uL (130-400); White Blood Cell (WBC) Count 11.3 thou/uL (4.8-10.8)
[2017-12-29] MEDS ORDERED: Ketorolac Tromethamine 30 MG/ML VIAL ONE (06:53)
[2017-12-29 07:08] LABS: ALT (SGPT) 14 U/L (8-55); AST (SGOT) 15 U/L (5-34); Albumin 3.4 g/dL (3.4-4.8); Alkaline Phosphatase 76 U/L (40-150); Anion Gap 16 mmol/L (10-20); BUN (Urea Nitrogen) 29 mg/dL (9.8-20.1); Bilirubin, Total 0.5 mg/dL (0.2-1.2); CK (CPK) 18 U/L (29-168); Calc. Creatinine Clearance 0 mL/min (70-130); Calcium 9.7 mg/dL (7.8-10.44); Carbon Dioxide 30 mmol/L (23-31); Chloride 94 mmol/L (98-107); Estimated GFR-MDRD 8; Glucose 87 mg/dL (80-115); Lipase 47 U/L (8-78); Potassium 5.3 mmol/L (3.5-5.1); Protein, Total 6.4 g/dL (6.0-8.3); Sodium 135 mmol/L (136-145)
[2017-12-29 07:11] LABS: CKMB 1.6 ng/mL (0-6.6); Troponin I 0.049 ng/mL (< 0.028)
[2017-12-29] MEDS ORDERED: HYDROcodone/Acetaminophen 5/325 mg Tablet ONE (07:22)
--- NOTE | 2017-12-29 08:57 | RAD ---
CHEST 1 VIEW PORTABLE: HISTORY: A 72-year-old female with a history of lower abdominal pain following dialysis. COMPARISON: 12/27/17. FINDINGS: Monitor leads overlie the chest. Increased markings are again noted in the right and left lungs whic h appear overall stable, particularly in the lung bases. Left subclavian vascular stent. IMPRESSION: Overall stable patchy linear and interstitial parenchymal changes, particularly in the lung bases wit h little change from prior study. POS: OFF
--- NOTE | 2017-12-29 09:03 | RAD ---
KUB: Date: 12/29/17 PROVIDED CLINICAL HISTORY: Abdominal pain. FINDINGS: No comparisons. The abdominal bowel gas pattern is nonspecific. Multiple surgical clips overlie the pelvis. Bilateral percutaneous nephrostomy tubes are suspected. Right hip arthroplasty change. The supine nature of th is study is not sensitive for detection of pneumoperitoneum. The abdominal bowel gas pattern is nonsp ecific. IMPRESSION: Nonspecific bowel gas pattern. POS: TPC
--- NOTE | 2017-12-29 09:07 | CT ---
NONCONTRAST CT ABDOMEN AND PELVIS: INDICATION: Pain. FINDINGS: Right nephrostomy tube is present. The kidneys are atrophic, more notable on the left. There is pro minence of left renal pelvis. Numerous metallic clips are seen within the pelvis bilaterally. There is marked abnormal soft tissue density of the pelvis with a focal hypodensity of the presacral regio n, incompletely evaluated. There is impacted stool throughout dilated bowel within low abdomen and p latasha with multifocal beam-attenuation artifact occupying the majority of the pelvis which precludes reliable assessment in this region. An inflammatory process at this location is not excluded. There is intrinsic increased density of the hepatic parenchyma, nonspecific. Cholelithiasis is present. Bibasilar consolidation with air bronchograms present, more notable on the left indicating pneumonia/ aspiration pneumonitis. Correlate clinically. No pneumoperitoneum is seen. No portal vein gas. Ch ronic osseous findings are present. There is a left lower quadrant ostomy. IMPRESSION: 1. Abnormal soft tissue density of the pelvis with mixed density of the presacral region. Abnormali ty of this region was present on the 03/03/08 exam, although direct correlation is limited due to nonc ontrast technique as well as extensive artifact from hardware. Correlate clinically to exclude an ac [place] inflammatory process. 2. Bibasilar consolidation, left greater than right, compatible with pneumonia and/or pneumonitis. 3. Constipation and distended bowel could be on the basis of ileus versus mechanical obstructive pro cess, not reliably assessed without IV or enteric contrast administration. Surgical consultation may prove useful in this regard. POS: BARI
[2017-12-29] MEDS ORDERED: Vancomycin HCl 1 GM in Premix Bag 1 BAG IVPB SCH (13:00)
[2017-12-29 13:07] VITALS: BMI 17.2
[2017-12-29] MEDS ORDERED: MD-Gastroview 120 ML BOT ONE (13:21)
[2017-12-29] MEDS ORDERED: Opium Tincture 10% (1ml Charge) PO PRN (14:36)
[2017-12-29] MEDS ORDERED: Gentamicin Sulfate 80 MG in Premix Bag 1 BAG IVPB SCH ×2 (15:00→18:30)
[2017-12-29] MEDS ORDERED: Ondansetron HCl/PF 4 MG/2 ML Vial IVP PRN (16:41)
[2017-12-29] MEDS ORDERED: HYDROcodone/Acetaminophen 5/325 mg Tablet PO PRN ×2 (16:41)
[2017-12-29] MEDS ORDERED: Ondansetron ODT 4 MG TAB PO PRN (16:41)
[2017-12-29] MEDS ORDERED: Acetaminophen 325 MG TAB PO PRN (16:41)
[2017-12-29] MEDS ORDERED: Polyethylene Glycol 3350 17 GM Packet PO SCH (17:00)
[2017-12-29] MEDS: Sevelamer Carbonate 800 MG TAB PO SCH (17:47)
--- NOTE | 2017-12-29 20:55 | RAD ---
SMALL BOWEL FOLLOW THROUGH: 12/29/17 INDICATION: Ileus versus small bowel obstruction. TECHNIQUE: The examination was started this morning at around approximately 11 a.m. the patient had to then unde rgo dialysis and was lost for followup until 7:51 p.m. on 12/29/17. Exam is continued through a nine h our time period. FINDINGS: Initial images demonstrate contrast administration into the stomach with filling of a few dilated loo ps of small bowel within the central abdomen. There is eventual passage at the three hour time jose luis w ith contrast see within the colon. At the nine hour time jose luis, there is contrast filling a left lower quadrant ostomy bag. There is remaining mild to moderately dilated loops of gas filled small bowel w ithin the central abdomen. Nephrostomy tube is seen within the right mid abdomen. There is diffuse os teopenia. There is scattered degenerative change. IMPRESSION: Findings consistent with mild partial small bowel obstruction. POS: BARI
[2017-12-29] MEDS: rOPINIRole HCl 0.25 MG TAB PO SCH (21:03)
[2017-12-29] MEDS: Temazepam 15 MG CAP PO PRN (21:07)
--- NOTE | 2017-12-30 01:39 | CON ---
DATE OF CONSULTATION: 12/29/2017 REASON FOR CONSULTATION: Obstructive uropathy. HISTORY OF PRESENT ILLNESS: Ms. Whitaker is a 72-year-old female who received her urologic care in [place] until recently, now beign followed by Dr. Chuckie Fernandez. She has a complicated prior medical history. She has a history of cervical and uterine cancer requiring pelvic exenteration many years ago. She has a left lower quadrant colostomy and a right lower quadrant urostomy. She is in renal failure and on hemodialysis. She received radiation therapy for her malignancy and this resulted in ureteral strictures. She has been managed with nephrostomy tubes. She does still make urine out of her urostomy and also both the right and left nephrostomy tubes. She states her left nephrostomy tube has become dislodged. She is unsure how, but this occurred 1-2 days ago. She presented to the hospital with abdominal discomfort. She also states she had a fever, although there has been no recorded fever since her admission. Urinalysis did not demonstrate significant bacteriuria on admission. PAST MEDICAL HISTORY: Significant for cervical and uterine cancer, treated by a pelvic exenteration, urostomy, colostomy, and radiation therapy; bilateral ureteral obstruction from radiation therapy, managed with percutaneous nephrostomies; hypertension; depression; Raynaud's phenomenon; and peripheral vascular disease. PAST SURGICAL HISTORY: Colostomy, pelvic exenteration, urostomy, AV fistula formation for dialysis. CHRONIC MEDICATIONS: Hydrocodone, famotidine, loperamide, metoclopramide, ondansetron, ropinirole, Senokot, venlafaxine, and temazepam. REVIEW OF SYSTEMS: Respiratory: Denies any shortness of breath. Cardiovascular: Denies chest pain or palpitations. Gastrointestinal: She has had some abdominal pain and has still noticed some colostomy output. Genitourinary: Please see history of present illness. PHYSICAL EXAMINATION: GENERAL: She is awake. She is in no apparent distress. She is a thin and ill- appearing. HEENT: Normocephalic, atraumatic. NECK: Supple. CHEST: Clear to auscultation. ABDOMEN: No peritoneal signs. Right lower quadrant urostomy, left lower quadrant colostomy, right nephrostomy tube in place. ADMISSION LABORATORY DATA: Creatinine 5. White count 11.3, hemoglobin 11.1, hematocrit 33.9. IMPRESSION: Ms. Whitaker is a 72-year-old female patient followed by Dr. Chuckie Fernandez with a complicated prior medical history significant for ESRD requiring dialysis and cervical cancer many years ago treated by pelvic exenteration and XRT. She has ureteral stricture disease as a result of radiation therapy.. She has a urostomy that does drain urine, but she also requirs bilateral nephrostomy tube for adequate urinary tract drainage. The left nephrostomy tube has inadvertently been displaced. They were recently changed approximately 1 month ago. RECOMMENDATIONS: 1. Left nephrostomy tube placement. 2. Antibiotic therapy as deemed appropriate by the Infectious Disease pricing consultant. SAWYER
[2017-12-30] MEDS: cloNIDine 0.1 MG TAB PO PRN ×3 (04:11→18:46)
[2017-12-30 07:18] LABS: #Basophils 0.1 thou/uL (0.0-0.2); #Eosinphils 0.1 thou/uL (0.0-0.7); #Lymphocytes 1.8 thou/uL (1.20-3.40); #Monocytes 0.4 thou/uL (0.11-0.59); #Neutrophils 8.4 thou/uL (1.40-6.50); %Basophils 0.5 % (0.0-1.0); %Eosinophils 0.7 % (0.0-10.0); %Lymphocytes 16.6 % (21.0-51.0); %Monocytes 3.9 % (0.0-10.0); %Neutrophils 78.4 % (42.0-75.0); Hemoglobin 10.9 g/dL (12.0-16.0); Mean Corpuscular HGB CONC 32.3 g/dL (32.0-36.0); Mean Corpuscular Hemoglobin 32.8 pg (27.0-31.0); Mean Platelet Volume 6.9 fL (7.4-10.4); Platelet Count 267 thou/uL (130-400); Red Blood Cell (RBC) Count 3.33 mill/uL (4.20-5.40); White Blood Cell (WBC) Count 10.7 thou/uL (4.8-10.8)
[2017-12-30 07:23] LABS: Anion Gap 14 mmol/L (10-20); BUN (Urea Nitrogen) 16 mg/dL (9.8-20.1); Calc. Creatinine Clearance 11 mL/min (70-130); Calcium 9.4 mg/dL (7.8-10.44); Carbon Dioxide 25 mmol/L (23-31); Chloride 102 mmol/L (98-107); Estimated GFR-MDRD 15; Glucose 90 mg/dL (80-115); Potassium 4.4 mmol/L (3.5-5.1); Sodium 137 mmol/L (136-145)
[2017-12-30] MEDS: Polyethylene Glycol 3350 17 GM Packet PO SCH (07:54)
[2017-12-30] MEDS: Famotidine 20 MG TAB PO SCH (07:55)
[2017-12-30] MEDS: Sevelamer Carbonate 800 MG TAB PO SCH ×3 (07:55→16:29)
[2017-12-30] MEDS ORDERED: Lidocaine 5% Patch TD PRN (09:00)
[2017-12-30 09:59] LABS: PTT 32.5 SEC (22.9-36.1)
[2017-12-30 10:09] LABS: INR-International Normal Ratio 1.1; Prothrombin Time 13.8 SEC (12.0-14.7)
[2017-12-30] MEDS ORDERED: Meperidine HCl/PF 25 MG/ML VIAL ONE ×2 (10:29→10:30)
[2017-12-30] MEDS ORDERED: Midazolam HCl 2 mg/2 ml Vial ONE (10:30)
[2017-12-30] MEDS ORDERED: Sodium Bicarbonate 2.5 MEQ/5 ML VIAL ONE (10:30)
[2017-12-30] MEDS ORDERED: Iopamidol 370 76% 50 ML VIAL FS ONE (13:24)
--- NOTE | 2017-12-30 14:07 | CT ---
CT GUIDED PERCUTANEOUS LEFT NEPHROSTOMY TUBE PLACEMENT: DATE: 12/30/17. HISTORY: Patient with left nephrostomy tube which was inadvertently removed. Let nephrostomy tube has been ou t for at least [address] scan exam on 12/29/17 did demonstrate left hydronephrosis. Right nephrostomy tube is noted to be in the correct position in the renal collecting system. TECHNIQUE: The procedure including risks and complications were explained to the patient and informed consent wa s obtained. The patient was placed on the CT scan table in the prone position. The prior nephrostom y tube placement was meticulously prepped and draped in the usual sterile fashion. Several attempts at manipulating a 5 English Berenstein catheter as well as a Glidewire through the nephrostomy tract w ere unsuccessful. A small amount of contrast was injected, but on initial imaging contrast could not be seen within the renal collecting system. As a result, an area overlying the left kidney was jose luis ed and then meticulously prepped and draped in the usual sterile fashion. The skin and subcutaneous tissues were infiltrated with buffered 1% Lidocaine for anesthesia. A 21-g auge needle was advanced into the collecting system and positioning was confirmed with axial noncontr ast CT images. The needle was exchanged over a 0.025-inch guidewire for a 5 English introducer sheath . A 0.035-inch Amplatz guidewire was placed. Positioning was again confirmed with axial CT images. A small skin incision was made. The introducer sheath was exchanged over the guidewire for an 8 Fren ch tissue dilator followed by placement of an 8 English percutaneous nephrostomy tube. The tube was c oiled and the guidewire was removed. Axial CT images were obtained through the level of the kidneys demonstrating the catheter in place within the collecting system and distal portion in the renal pelv is. Approximately 5 mL of clear urine was aspirated and sent for gram stain and culture. The catheter wa s placed to gravity drainage and sutured in place utilizing 2-0 Ethilon suture material. A dry steri le dressing was placed. The patient tolerated the procedure well and without immediate complication. The patient was dischar ged to her room in stable condition. IMPRESSION: 1. Unsuccessful attempt at manipulating a catheter through the patient's prior nephrostomy tract in the left posterior flank region. The nephrostomy tube was noted to be inadvertently removed for at [facility] 48 hours. Given inability to replace the nephrostomy tube, a new 8 English percutaneous nephrost paige tube was placed utilizing CT guidance with the tip of the catheter coiled within the renal pelvis . 2. Left nephrostomy tube noted in place and in correct position within the collecting system and the re is no right hydronephrosis. 3. Nonobstructing bilateral renal calculi. 4. Cholelithiasis. 5. Residual contrast within the colon. 6. Left lower quadrant colostomy. POS: BARI
--- NOTE | 2017-12-30 15:17 | PDOC.PN ---
- Subjective Encounter Start Date: 12/30/17 Encounter Start Time: 08:40 Pt did well overnigh,t amanda HD well, nocomplications, Abd pain much improve, increased ileostomy output and brown output after SBFT. To OR today for left nephrostomy replacement at 1100 Pt otherwise ready to go home. She was at the [facility] for rehab afte rher last stay,but didnt like it ther.e [facility] b[facility] she got admittedfor abd pain. [place] doesnt take new patients on the weekend, so likely will be stuck here for the weekend. Her room at the [facility] has already been vacated and her things cleaned out by family no f/C, no N/V/D/c, no new complaints all systems reviewed and neg x as above - Objective Resuscitation Status: Resuscitation Status FULL:Full Resuscitation MAR Reviewed: Yes Vital Signs & Weight: Vital Signs (12 hours) Temp Pulse Resp BP BP Pulse Ox 12/30/17 12:55 98.4 F 12 146/72 H 12/30/17 12:45 98 18 146/72 H 97 12/30/17 07:56 183/86 H 12/30/17 07:45 98.2 F 103 H 12 179/80 H 94 L 12/30/17 07:12 97.5 F L 95 16 12/30/17 05:45 173/79 H 12/30/17 04:11 183/86 H 12/30/17 04:00 97.5 F L 95 16 183/86 H 98 Weight Admit Weight 85 lb 15.684 oz Weight 88 lb I&O: 12/29/17 12/30/17 12/31/17 06:59 06:59 06:59 Intake Total 265 Output Total 1575 200 Balance -1310 -200 Result Diagrams: 12/30/17 06:34 12/30/17 06:34 Radiology Reviewed by me: Yes EKG Reviewed by me: Yes Phys Exam - Physical Examination Constitutional: NAD HEENT: PERRLA, moist MMs, sclera anicteric, oral pharynx no lesions Neck: no nodes, no JVD, supple, full ROM Respiratory: no wheezing, no rales, no rhonchi, clear to auscultation bilateral Cardiovascular: RRR, no significant murmur, no rub Gastrointestinal: soft, non-tender, no distention, positive bowel sounds ileostomy intact with liquid stool. colotomy intact with minimal mucous. Musculoskeletal: no edema, pulses present Neurological: non-focal, normal sensation, moves all 4 limbs Lymphatic: no nodes Psychiatric: normal affect, A&O x 3 Skin: no rash, normal turgor, cap refill <2 seconds Dx/Plan (1) Abdominal pain Code(s): R10.9 - UNSPECIFIED ABDOMINAL PAIN Status: Resolved Qualifiers: Abdominal location: generalized Qualified Code(s): R10.84 - Generalized abdominal pain (2) Nephrostomy tube displaced Code(s): T83.022A - DISPLACEMENT OF NEPHROSTOMY CATHETER, INITIAL ENCOUNTER Status: Acute Comment: for replacement today, appreciate Dr Scherer's input (3) ESRD (end stage renal disease) Code(s): N18.6 - END STAGE RENAL DISEASE Status: Chronic Comment: HD MWF per Dr Elizondo (4) HTN (hypertension) Code(s): I10 - ESSENTIAL (PRIMARY) HYPERTENSION Status: Chronic Qualifiers: Hypertension type: essential hypertension Qualified Code(s): I10 - Essential (primary) hypertension (5) H/O carcinoma of bladder Code(s): Z85.51 - PERSONAL HISTORY OF MALIGNANT NEOPLASM OF BLADDER Status: Chronic (6) H/O malignant neoplasm of uterine body Code(s): Z85.42 - PERSONAL HISTORY OF MALIGNANT NEOPLASM OF OTH PRT UTERUS Status: Chronic (7) Physical deconditioning Code(s): R53.81 - OTHER MALAISE Status: Chronic Comment: to [facility] on discharge (8) Secondary hyperparathyroidism of renal origin Code(s): N25.81 - SECONDARY HYPERPARATHYROIDISM OF RENAL ORIGIN Status: Chronic - Plan cont current plan of care, continue antibiotics, PT/OT, social studies department chair, out of bed/ambulate * . will assign avoidable days to [facility] as they are unwillling to accept her over the weekend
[2017-12-30] MEDS: Lidocaine Patch Removal 1 EACH TOP SCH (20:15)
[2017-12-30] MEDS: rOPINIRole HCl 0.25 MG TAB PO SCH (20:17)
[2017-12-30] MEDS: Temazepam 15 MG CAP PO PRN (22:01)
[2017-12-31] MEDS: cloNIDine 0.1 MG TAB PO PRN (07:32)
[2017-12-31] MEDS: Sevelamer Carbonate 800 MG TAB PO SCH ×3 (07:32→17:25)
[2017-12-31] MEDS: Famotidine 20 MG TAB PO SCH (07:32)
[2017-12-31] MEDS: Polyethylene Glycol 3350 17 GM Packet PO SCH (07:33)
--- NOTE | 2017-12-31 12:07 | PDOC.PN ---
- Subjective Encounter Start Date: 12/31/17 Encounter Start Time: 09:40 Pt without complaints, abd pain gone since nephrostomy placed,yrine clearing nicely. No F/c, no N/V/D/c, no CP or SOB all systems reviewed and neg x as above - Objective Resuscitation Status: Resuscitation Status FULL:Full Resuscitation MAR Reviewed: Yes Vital Signs & Weight: Vital Signs (12 hours) Temp Pulse Resp BP BP BP Pulse Ox 12/31/17 10:35 98.3 F 106 H 18 116/64 97 12/31/17 09:34 168/78 H 12/31/17 07:32 183/86 H 12/31/17 07:22 98.1 F 94 20 208/93 H 94 L 12/31/17 07:09 98.3 F 94 20 12/31/17 05:27 97 12/31/17 03:35 98.3 F 94 20 157/76 H 97 Weight Admit Weight 85 lb 15.684 oz Weight 85 lb 12.8 oz I&O: 12/30/17 12/31/17 01/01/18 06:59 06:59 06:59 Intake Total 265 1000 Output Total 1575 900 Balance -1310 100 Result Diagrams: 12/30/17 06:34 12/30/17 06:34 Phys Exam - Physical Examination Constitutional: NAD HEENT: PERRLA, moist MMs, sclera anicteric, oral pharynx no lesions Neck: no nodes, no JVD, supple, full ROM Respiratory: no wheezing, no rales, no rhonchi, clear to auscultation bilateral Cardiovascular: RRR, no significant murmur, no rub Gastrointestinal: soft, non-tender, no distention, positive bowel sounds ostomies intact, nephrostomy tubes draining well Musculoskeletal: no edema, pulses present Neurological: non-focal, normal sensation, moves all 4 limbs Lymphatic: no nodes Psychiatric: normal affect, A&O x 3 Dx/Plan (1) Nephrostomy tube displaced Code(s): T83.022A - DISPLACEMENT OF NEPHROSTOMY CATHETER, INITIAL ENCOUNTER Status: Acute Comment: S/P replacement. appreciate Dr Scherer's input. functioning well. no complications or symptoms (2) ESRD (end stage renal disease) Code(s): N18.6 - END STAGE RENAL DISEASE Status: Chronic Comment: HD MWF per Dr Elizondo (3) HTN (hypertension) Code(s): I10 - ESSENTIAL (PRIMARY) HYPERTENSION Status: Chronic Qualifiers: Hypertension type: essential hypertension Qualified Code(s): I10 - Essential (primary) hypertension (4) H/O carcinoma of bladder Code(s): Z85.51 - PERSONAL HISTORY OF MALIGNANT NEOPLASM OF BLADDER Status: Chronic (5) H/O malignant neoplasm of uterine body Code(s): Z85.42 - PERSONAL HISTORY OF MALIGNANT NEOPLASM OF OTH PRT UTERUS Status: Chronic (6) Physical deconditioning Code(s): R53.81 - OTHER MALAISE Status: Chronic Comment: to [place] on discharge (7) Secondary hyperparathyroidism of renal origin Code(s): N25.81 - SECONDARY HYPERPARATHYROIDISM OF RENAL ORIGIN Status: Chronic (8) Abdominal pain Code(s): R10.9 - UNSPECIFIED ABDOMINAL PAIN Status: Resolved Qualifiers: Abdominal location: generalized Qualified Code(s): R10.84 - Generalized abdominal pain - Plan * .
[2017-12-31] MEDS ORDERED: Gentamicin Sulfate 80 MG in Premix Bag 1 BAG IVPB SCH (14:45)
[2017-12-31] MEDS: Lidocaine Patch Removal 1 EACH TOP SCH (20:22)
[2017-12-31] MEDS: rOPINIRole HCl 0.25 MG TAB PO SCH (20:41)
[2017-12-31] MEDS: Temazepam 15 MG CAP PO PRN (20:41)
--- NOTE | 2017-12-31 20:59 | HP ---
DATE OF ADMISSION: 12/29/2017 TIME OF SERVICE: 1515 hours. CHIEF COMPLAINT: Abdominal pain. HISTORY OF PRESENT ILLNESS: Ms. Whitaker is a 72-year-old female with history of end-stage renal d isease, followed by Dr. Elizondo with hemodialysis Monday, Monday, and Monday, cervical cancer, uter ine cancer, status post multiple abdominal surgeries with ileostomy, colostomy, and nephrostomy tubes . She has bilateral renal stents in and nephrostomy tubes as well as urostomy. She does have a hist ory of Raynaud's, osteoarthritis, PVD, atherosclerotic cardiovascular disease and gout. She was in normal state of health. She has had a rehab at [facility] and developed left-sided abdomin al pain. She was transferred to the Emergency Department for evaluation. There, she had a CT scan of the abdomen and pelvis that was largely unremarkable. She has some const ipation and did have some presacral soft tissue densities. Note, the ER noted that her nephrostomy tube on the left had been inadvertently removed, unknown timi cullen. We were subsequently called for admit. The patient was accepted and transferred to the floor. She is feeling decently. I saw her while she was in dialysis. Denies any nausea or vomiting. No fevers or chills. No rigors. No diarrhea or c onstipation. No cough or sputum production. PAST MEDICAL HISTORY: 1. End-stage renal disease, followed by Dr. Elizondo, hemodialysis dependent on Monday, Monday, and Monday. 2. Cervical cancer. 3. History of uterine cancer. 4. Renal stents. 5. Nephrostomy tube placement chronically. 6. Raynaud's. 7. Osteoarthritis. 8. PVD with atherosclerotic cardiovascular disease. 9. Gout. PAST SURGICAL HISTORY: Includes, 1. Colostomy and ileostomy placements. 2. Right SHANIQUE x3. 3. Hysterectomy. 4. Right-sided PICC placement and removal, right-sided hemodialysis PermCath placement. 5. Left upper extremity fistula creation. 6. Right-sided hemodialysis PermCath removal. HOME MEDICATIONS: 1. Clonidine 0.1 mg p.o. p.r.n. elevated pressure. 2. Lasix 80 mg daily. 3. [employer] 10/325. 4. Cipro 250 b.i.d. ALLERGIES: ERYTHROMYCIN, MORPHINE SULFATE, NARCAN, and PHENERGAN. FAMILY HISTORY: Negative for clotting or bleeding disorder. No immune dysfunction. SOCIAL HISTORY: Negative for habits x3. She is a former smoker. Denies any drug use. She is currently admitted in [facility]. She is currently wanting to go to [place] and arrangements were made for her to transfer when she leaves here. REVIEW OF SYSTEMS: All systems were reviewed and negative except as listed as per HPI. PHYSICAL EXAMINATION: VITAL SIGNS: Temperature 99.6, pulse 83, blood pressure 177/93, respiratory rate 20, satting 95% on room air. GENERAL: She is awake, she is alert, she is oriented x3, cachectic, looking elderly, older white fem johnson, appears older than her stated age. She appears to be in no acute distress. HEENT: Normocephalic, atraumatic. Pupils equal, reactive bilaterally. Mucous membranes moist. The re is no visible lesion or thrush. NECK: Supple. She has no lymphadenopathy, JVD, or thyromegaly. Normal carotid upstrokes without br uits. LUNGS:. Clear. She has some bibasilar crackles that seem to clear with deep inspiration. She has n o prolonged expiratory phase. No wheezes. CARDIOVASCULAR: She has normal cardiac and regular. Normal S1 and S2. She has a 3/6 systolic eject ion murmur best heard at the left sternal border. ABDOMEN: Soft, it is nontender. She has an ileostomy with liquid stool and air. She has a colostom y with mucoid draining. She has a right-sided nephrostomy tube, it was clean, dry, and intact and le ft nephrostomy tube has been removed. SKIN: Otherwise warm, moist, and well perfused. There are no other rash or lesions. MUSCULOSKELETAL: Normal to inspection. No joint inflammation. No palpable effusions. NEUROLOGIC: Shows cranial nerves II through XII grossly intact. She has no focal deficits. LABORATORY DATA: Sodium 135, potassium 5.3, chloride 94, bicarbonate 30, BUN 29, creatinine 5.09, gl ucose of 47, calcium 9.7. Liver function is completely within normal limits. Her CBC showed white c ount 11.3, hemoglobin 11.1, hematocrit 33.9, platelet count 217,000. CK was normal at 18. BNP elevated at 3266. CK-MB 1.6. Troponin I is indeterminate 0.049. Her urin alysis is unremarkable. A CT scan of the abdomen and pelvis showed bibasilar consolidation consistent with atelectasis, const ipation, and presacral soft tissue densities. ASSESSMENT AND PLAN: 1. Left-sided abdominal pain. CT scan showed constipation. She also had her nephrostomy tube come out on left side. Certainly, it could be related. Dr. Crane has been consulted and we will see t he patient regarding nephrostomy plans. In the meantime, she is getting dialysis now. We will vee nue her home medications. 2. Constipation. We will get a small bowel follow-through to assess her bowel function. 3. Raynaud's. 4. Osteoarthritis. 5. Peripheral vascular disease. 6. Coronary artery disease without angina. 7. Gout. We will continue home medications. We will place her in observation and monitor specially given neph rostomy tube replacement tomorrow and she will be ready for discharge.
--- NOTE | 2017-12-31 23:32 | PRG ---
DATE OF SERVICE: 12/31/2017 CHIEF COMPLAINT: Fatigue and tiredness. OBJECTIVE: VITAL SIGNS: T-max 99, blood pressure 148/84, pulse 68, respiratory rate 16. ABDOMEN: Soft, nontender. Stoma is appeared, but viable. ASSESSMENT: Ms. Whitaker is status post left percutaneous nephrostomy tube placement yesterday. T he tube is draining well. She is not having any pain from that insertion site. She is due for dialy sis tomorrow. She is responding well to antibiotic therapy. PLAN: No new recommendations at this time.
[2018-01-01] MEDS: Famotidine 20 MG TAB PO SCH (08:06)
[2018-01-01] MEDS: Sevelamer Carbonate 800 MG TAB PO SCH (08:06)
[2018-01-01] MEDS: cloNIDine 0.1 MG TAB PO PRN (08:07)
[2018-01-01 08:10] VITALS: TEMP 98
--- NOTE | 2018-01-01 09:10 | PDOC.PN ---
- Subjective Encounter Start Date: 01/01/18 Encounter Start Time: 09:50 Subjective: Patient without complaint this AM. Abdominal pain resolved with nephrostomy -: tube placement. - Objective Resuscitation Status: Resuscitation Status FULL:Full Resuscitation MAR Reviewed: Yes Vital Signs & Weight: Vital Signs (12 hours) Temp Pulse Resp BP BP BP Pulse Ox 01/01/18 08:07 184/83 H 01/01/18 08:00 98.0 F 91 12 01/01/18 07:37 98.0 F 91 12 179/81 H 96 01/01/18 04:00 97.6 F 87 16 174/80 H 98 Weight Admit Weight 85 lb 15.684 oz Weight 96 lb 1.6 oz I&O: 12/31/17 01/01/18 01/02/18 06:59 06:59 06:59 Intake Total 1000 270 Output Total 900 775 Balance 100 -505 Result Diagrams: 12/30/17 06:34 12/30/17 06:34 Phys Exam - Physical Examination Constitutional: NAD HEENT: moist MMs Respiratory: no wheezing, no rales, no rhonchi Cardiovascular: RRR, no significant murmur Gastrointestinal: soft, non-tender, positive bowel sounds lots of gas and some soft stool in ostomy bag Neurological: non-focal, moves all 4 limbs Psychiatric: normal affect, A&O x 3 Dx/Plan (1) Nephrostomy tube displaced Code(s): T83.022A - DISPLACEMENT OF NEPHROSTOMY CATHETER, INITIAL ENCOUNTER Status: Acute Comment: S/P replacement. appreciate Dr Scherer's input. functioning well. no complications or symptoms. Patient did have VRE grow from urine. Discussed case with Dr. Soto ID from yesterday and he stated that likely colonization, no current evidence inflammation/UTI so no need for antibiotics at this time. (2) ESRD (end stage renal disease) Code(s): N18.6 - END STAGE RENAL DISEASE Status: Chronic Comment: HD MWF per Dr Elizondo (3) HTN (hypertension) Code(s): I10 - ESSENTIAL (PRIMARY) HYPERTENSION Status: Chronic Qualifiers: Hypertension type: essential hypertension Qualified Code(s): I10 - Essential (primary) hypertension (4) H/O carcinoma of bladder Code(s): Z85.51 - PERSONAL HISTORY OF MALIGNANT NEOPLASM OF BLADDER Status: Chronic (5) H/O malignant neoplasm of uterine body Code(s): Z85.42 - PERSONAL HISTORY OF MALIGNANT NEOPLASM OF OTH PRT UTERUS Status: Chronic (6) Physical deconditioning Code(s): R53.81 - OTHER MALAISE Status: Chronic Comment: to [place] on discharge (7) Secondary hyperparathyroidism of renal origin Code(s): N25.81 - SECONDARY HYPERPARATHYROIDISM OF RENAL ORIGIN Status: Chronic - Plan cont current plan of care d/c to NH at 1000 today * . - Discharge Day Encounter end time: 10:00
[2018-01-01 09:43] VITALS: BP 164/83
[2018-01-01] MEDS: Polyethylene Glycol 3350 17 GM Packet PO SCH (09:44)
--- NOTE | 2018-01-01 11:09 | DIS ---
DATE OF ADMISSION: 12/29/2017 DATE OF DISCHARGE: 01/01/2018 PRIMARY CARE PHYSICIAN: Dr. Mira Gilman. REASON FOR ADMISSION: Abdominal pain and displaced nephrostomy tube. DISCHARGE DIAGNOSES: 1. Nephrostomy tube displacement status post replacement in the hospital. 2. 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 3. End-stage renal disease on dialysis. 4. Hypertension. 5. History of carcinoma of the bladder. 6. History of malignant neoplasm of the uterine body. 7. Physical deconditioning. 8. Secondary hyperparathyroidism of renal origin. PROCEDURES: 1. X-ray of the abdomen showing nonspecific bowel gas pattern. 2. CT of the abdomen and pelvis without contrast showing some soft tissue density in the pelvis with mixed density in the presacral region present on previous CT scan and bibasilar consolidation left g reater than right, consistent with pneumonia or pneumonitis and constipation, distended bowel, ileus versus mechanical obstructive process. 3. X-rays of small bowel follow through showing mild partial small-bowel obstruction. 4. CT guided percutaneous left nephrostomy tube placement after unsuccessful attempt to manipulate hemant mack through the prior nephrostomy tract. CONSULTATION: Urology, Dr. Scherer. HOSPITAL COURSE: This is a 72-year-old white female with a history of previous cancer status post ra diation therapy with ureter scarring and nephrostomy tube placement, although is end-stage renal dise ase on dialysis. She came in with abdominal pain. She had a CT of the abdomen with the above result s. She is not having any nausea, vomiting, and was passing stool and gas through her ostomy, so a all bowel follow-through was done which showed a possible ileus; however, she is not having any sympt oms consistent with an ileus. At that time, it was noted that her nephrostomy tube had actually been displaced. This was replaced during the hospitalization with resolution of her abdominal pain. She continued to eat well without any nausea, vomiting, and continue stool passing well. The patient wa s cleared for discharge to the [facility]; however, they had no beds over the weekend so she was ke pt over the weekend and is being discharged today to [facility]. DISCHARGE MANAGEMENT: Discharged to [facility]. ACTIVITIES: As tolerated with physical and occupational therapy. DIET: Renal diet. FOLLOWUP: Follow up with Dr. Gilman in 7 days. DISCHARGE MEDICATIONS: Resume all home medications. 1. Ropinirole 0.25 mg at night. 2. Restoril 15 mg at night as needed. 3. Effexor 225 mg daily. 4. Vitamin B12 as directed. 5. Renvela 2400 mg 3 times a day. 6. Lortab as needed. 7. Lidoderm patch daily as needed. 8. Opium tincture 1 mL q.6 hours as needed. 9. Senokot 2 tabs at night as needed. 10. Catapres 0.1 mg q.4 hours as needed.
--- NOTE | 2018-01-01 14:10 | CT ---
CT GUIDED PERCUTANEOUS LEFT NEPHROSTOMY TUBE PLACEMENT: DATE: 12/30/17. HISTORY: Patient with left nephrostomy tube which was inadvertently removed. Let nephrostomy tube has been ou t for at least [address] scan exam on 12/29/17 did demonstrate left hydronephrosis. Right nephrostomy tube is noted to be in the correct position in the renal collecting system. TECHNIQUE: The procedure including risks and complications were explained to the patient and informed consent wa s obtained. The patient was placed on the CT scan table in the prone position. The prior nephrostom y tube placement was meticulously prepped and draped in the usual sterile fashion. Several attempts at manipulating a 5 Welsh Berenstein catheter as well as a Glidewire through the nephrostomy tract w ere unsuccessful. A small amount of contrast was injected, but on initial imaging contrast could not be seen within the renal collecting system. As a result, an area overlying the left kidney was jose luis ed and then meticulously prepped and draped in the usual sterile fashion. The skin and subcutaneous tissues were infiltrated with buffered 1% Lidocaine for anesthesia. A 21-g auge needle was advanced into the collecting system and positioning was confirmed with axial noncontr ast CT images. The needle was exchanged over a 0.025-inch guidewire for a 5 Welsh introducer sheath . A 0.035-inch Amplatz guidewire was placed. Positioning was again confirmed with axial CT images. A small skin incision was made. The introducer sheath was exchanged over the guidewire for an 8 Fren ch tissue dilator followed by placement of an 8 Welsh percutaneous nephrostomy tube. The tube was c oiled and the guidewire was removed. Axial CT images were obtained through the level of the kidneys demonstrating the catheter in place within the collecting system and distal portion in the renal pelv is. Approximately 5 mL of clear urine was aspirated and sent for gram stain and culture. The catheter wa s placed to gravity drainage and sutured in place utilizing 2-0 Ethilon suture material. A dry steri le dressing was placed. The patient tolerated the procedure well and without immediate complication. The patient was dischar ged to her room in stable condition. IMPRESSION: 1. Unsuccessful attempt at manipulating a catheter through the patient's prior nephrostomy tract in the left posterior flank region. The nephrostomy tube has been inadvertently removed for at least 48 hours. Given inability to replace the nephrostomy tube, a new 8 Welsh percutaneous nephrostomy tub e was placed utilizing CT guidance with the tip of the catheter coiled within the renal pelvis. 2. Left nephrostomy tube noted in place and in correct position within the collecting system, and th ere is no right hydronephrosis. 3. Nonobstructing bilateral renal calculi. 4. Cholelithiasis. 5. Residual contrast within the colon. 6. Left lower quadrant colostomy.
--- NOTE | 2018-01-06 15:02 | EKG ---
Test Reason : Blood Pressure : / mmHG Vent. Rate : 086 BPM Atrial Rate : 086 BPM P-R Int : 156 ms QRS Dur : 084 ms QT Int : 362 ms P-R-T Axes : 033 066 066 degrees QTc Int : 433 ms Normal sinus rhythm Possible Anterior infarct , age undetermined Abnormal ECG Confirmed by CASANDRA MILIAN, SULEMAN ([id number]), social media editor TERESO OLSON ([id number]) on 01/06/2018 3:02:07 PM Referred By: Confirmed By:SULEMAN GUAJARDO MD
== END 2018-01-01 10:19 ==
LOC: ERS 05:33 → ERHOLD 10:24 → 2SW 12:30
PROVIDERS: ADMIT Internal Medicine Infectious Disease; ATTEND Internal Medicine Infectious Disease
DX: T83.022A Displacement of nephrostomy catheter, initial encounter (principal); B95.2 Enterococcus as the cause of diseases classified elsewhere; I13.11 Hypertensive heart and chronic kidney disease without heart failure, with stage 5 chronic kidney disease, or end stage renal disease; N18.6 End stage renal disease; N25.81 Secondary hyperparathyroidism of renal origin; K59.00 Constipation, unspecified; I73.00 Raynaud's syndrome without gangrene; M19.90 Unspecified osteoarthritis, unspecified site; I25.10 Atherosclerotic heart disease of native coronary artery without angina pectoris; M10.9 Gout, unspecified; I73.9 Peripheral vascular disease, unspecified; R53.81 Other malaise; Z16.21 Resistance to vancomycin; Z99.2 Dependence on renal dialysis; Z85.51 Personal history of malignant neoplasm of bladder; Z85.42 Personal history of malignant neoplasm of other parts of uterus; Z79.899 Other long term (current) drug therapy; Z88.1 Allergy status to other antibiotic agents; Z88.8 Allergy status to other drugs, medicaments and biological substances
CPT/HCPCS: 71045; 74018; 74176; 74250; 75984; 77002; 80048; 80053; 80170; 82550; 82553; 83605; 83690; 83880; 84484; 85025 ×2; 85610; 85730; 87040; 87070; 87076; 87077; 87086; 87186; 87205; 93005; 96367; 96374; 96375; 97139 ×2; 99285; C1729; C1769; G0378 ×2; 36415; 81003; 81015; 90935; G0257; J1580; J1885; J1956; J2175; J2250; J3370